=== PATIENT | male | born 1980 | race Caucasian/White ===

== ENCOUNTER 2019-09-26 20:51 | Observation (INO) | payer BC ==
[2019-09-26] MEDS ORDERED: Sodium Chloride 0.9% 1,000 ML IV ONE ×2 (21:08→23:39)
[2019-09-26] MEDS ORDERED: Ondansetron 4 MG/2 ML SDV IVPUSH ONE (21:10)
[2019-09-26] MEDS ORDERED: Morphine 4 MG/ML Syringe IVPUSH ONE (21:10)
--- NOTE | 2019-09-26 21:14 | EDM.PDOC ---
ED HPI GENERAL MEDICAL PROBLEM - General Chief Complaint: Abdominal Pain Stated Complaint: LOWER RIGHT ABDOMINAL PAIN Time Seen by Provider: 09/26/19 20:58 Source of Information: Reports: Patient History Limitations: Reports: No Limitations - History of Present Illness INITIAL COMMENTS - FREE TEXT/NARRATIVE: 39-year-old male presents the emergency room chief complaint of right axillary abdominal pain. Patient states the pain comes and goes not related to eating, urinating, or any trauma. Patient has a history of ulcerative colitis patient denies fever chills or any chest pain Onset: Gradual Duration: Day(s): Location: Reports: Abdomen, Lower Extremity, Right Quality: Reports: Ache Severity: Moderate Improves with: Reports: None Worsens with: Reports: None Associated Symptoms: Reports: No Other Symptoms abdomen Pain Score (Numeric/FACES): 7 - Related Data Allergies Allergy/AdvReac Type Severity Reaction Status Date / Time No Known Allergies Allergy Verified 09/26/19 23:33 ED ROS GENERAL - Review of Systems Review Of Systems: See Below Constitutional: Reports: No Symptoms HEENT: Reports: No Symptoms Respiratory: Reports: No Symptoms Cardiovascular: Reports: No Symptoms Endocrine: Reports: No Symptoms GI/Abdominal: Reports: No Symptoms, Abdominal Pain : Reports: No Symptoms Musculoskeletal: Reports: No Symptoms Skin: Reports: No Symptoms Neurological: Reports: No Symptoms Psychiatric: Reports: No Symptoms Hematologic/Lymphatic: Reports: No Symptoms Immunologic: Reports: No Symptoms ED EXAM, GI/ABD - Physical Exam Exam: See Below Exam Limited By: No Limitations General Appearance: Alert, WD/WN, No Apparent Distress Eyes: Bilateral: Normal Appearance, EOMI Ears: Normal External Exam, Normal Canal, Hearing Grossly Normal, Normal TMs Course - Vital Signs Text/Narrative:: 39-year-old gentleman presents to the emergency room with right sided abdominal pain. Patient has a history of primary sclerosing cirrhosis of the liver and ulcerative colitis. Patient is followed in the [facility] next time he is seen this in next January. Patient states for the past 3 days he has had pain no nausea no vomiting over his liver. Patient denies chills and fever. He has a normal CT scan. Patient's CBC is normal. Patient's LFT reflects transaminase. Patient still uncomfortable despite 2 4 morphine and Zofran. Patient does not feel pain is under control for being discharged home. I will call the admitting physician and attempt to get the patient admitted for pain control. Abdominal pain Assessment: Abdominal pain Cussed the case with the hospitalist Last Recorded V/S: Last Vital Signs Temp 97.7 F 09/26/19 23:08 Pulse 79 09/26/19 23:08 Resp 18 09/26/19 23:08 BP 147/99 H 09/26/19 23:08 Pulse Ox 97 09/26/19 23:08 - Orders/Labs/Meds Labs: Laboratory Tests 09/26/19 09/26/19 09/26/19 Range/Units 21:26 21:32 21:32 WBC 10.06 (4.0-11.0) K/uL RBC 4.65 (4.50-5.90) M/uL Hgb 13.5 (13.0-17.0) g/dL Hct 41.4 (38.0-50.0) % MCV 89.0 (80.0-98.0) fL MCH 29.0 (27.0-32.0) pg MCHC 32.6 (31.0-37.0) g/dL RDW Std Deviation 47.5 (28.0-62.0) fl RDW Coeff of Peter 15 (11.0-15.0) % Plt Count 271 (150-400) K/uL MPV 10.40 (7.40-12.00) fL Neut % (Auto) 68.3 (48.0-80.0) % Lymph % (Auto) 22.5 (16.0-40.0) % [place] % (Auto) 8.1 (0.0-15.0) % Eos % (Auto) 0.9 (0.0-7.0) % Baso % (Auto) 0.2 (0.0-1.5) % Neut # (Auto) 6.9 H (1.4-5.7) K/uL Lymph # (Auto) 2.3 (0.6-2.4) K/uL [place] # (Auto) 0.8 (0.0-0.8) K/uL Eos # (Auto) 0.1 (0.0-0.7) K/uL Baso # (Auto) 0.0 (0.0-0.1) K/uL Nucleated RBC % 0.0 /100WBC Nucleated RBCs # 0 K/uL Sodium 132 L (136-148) mmol/L Potassium 4.3 (3.5-5.1) mmol/L Chloride 94 L (98-107) mmol/L Carbon Dioxide 28.8 (21.0-32.0) mmol/L BUN 17 (7.0-18.0) mg/dL Creatinine 1.1 (0.8-1.3) mg/dL Est Cr Clr Drug Dosing TNP Estimated GFR (MDRD) > 60.0 ml/min Glucose 411 H (74-106) mg/dL Calcium 8.9 (8.5-10.1) mg/dL Total Bilirubin 0.8 (0.2-1.0) mg/dL AST 89 H (15-37) IU/L ALT 152 H (14-63) IU/L Alkaline Phosphatase 193 H (46-116) U/L Total Protein 9.4 H (6.4-8.2) g/dL Albumin 3.7 (3.4-5.0) g/dL Globulin 5.7 H (2.6-4.0) g/dL Albumin/Globulin Ratio 0.7 L (0.9-1.6) Urine Color YELLOW Urine Appearance CLEAR Urine pH 7.0 (5.0-8.0) Ur Specific [place] 1.015 (1.001-1.035) Urine Protein NEGATIVE (NEGATIVE) mg/dL Urine Glucose (UA) >=1000 (NEGATIVE) mg/dL Urine Ketones NEGATIVE (NEGATIVE) mg/dL Urine Occult Blood NEGATIVE (NEGATIVE) Urine Nitrite NEGATIVE (NEGATIVE) Urine Bilirubin NEGATIVE (NEGATIVE) Urine Urobilinogen 0.2 (<2.0) EU/dL Ur Leukocyte Esterase NEGATIVE (NEGATIVE) Meds: Medications Discontinued Medications Generic Name Dose Route Start Last Admin Trade Name Freq PRN Reason Stop Dose Admin Sodium Chloride 1,000 mls @ 1,000 mls/hr 09/26/19 21:08 09/26/19 21:35 Normal Saline IV 09/26/19 22:07 1,000 mls/hr .Bolus ONE Administration Iopamidol 100 ml 09/26/19 22:36 09/26/19 22:36 Isovue-370 (76%) IVPUSH 09/26/19 22:37 100 ml ONETIME ONE Administration Morphine Sulfate 4 mg 09/26/19 21:10 09/26/19 21:37 Morphine IVPUSH 09/26/19 21:11 4 mg ONETIME ONE Administration Morphine Sulfate 6 mg 09/26/19 23:28 Morphine IVPUSH 09/26/19 23:29 ONETIME ONE Ondansetron HCl 4 mg 09/26/19 21:10 09/26/19 21:36 Zofran IVPUSH 09/26/19 21:11 4 mg ONETIME ONE Administration Departure - Departure Time of Disposition: 23:39 Disposition: Refer to Observation Condition: Good Clinical Impression: Abdominal pain Qualifiers: Abdominal location: right upper quadrant Qualified Code(s): R10.11 - Right upper quadrant pain - Discharge Information Referrals: PCP,None [Primary Care Provider] - Forms: ED Department Discharge Sepsis Event Note - Focused Exam Vital Signs: Vital Signs Temp Pulse Resp BP Pulse Ox 09/26/19 23:08 97.7 F 79 18 147/99 H 97 09/26/19 21:04 97.4 F 90 18 103/41 L 97 Date Exam was Performed: 09/26/19 Time Exam was Performed: 23:38
[2019-09-26 21:56] LABS: BLOOD UREA NITROGEN,BUN 17 mg/dL (7.0-18.0); CARBON DIOXIDE,CO2 28.8 mmol/L (21.0-32.0); CHLORIDE,CL 94 mmol/L (98-107); GLUCOSE RANDOM 411 mg/dL (74-106); POTASSIUM,K 4.3 mmol/L (3.5-5.1); SODIUM,NA 132 mmol/L (136-148)
[2019-09-26] MEDS ORDERED: Iopamidol 755 Mg/ML 100 ML Bottle IVPUSH ONE (22:36)
--- NOTE | 2019-09-26 22:50 | CT ---
INDICATION: Right lower quadrant pain for [address] ABDOMEN AND PELVIS WITH CONTRAST TECHNIQUE: Multidetector CT imaging was performed through the abdomen and pelvis following intravenous contrast administration using 100 mL Isovue 370. Coronal and sagittal reconstructions were generated. COMPARISON: None. FINDINGS: Lower chest: Minimal bibasilar lung atelectasis. Liver: Within normal limits. Gallbladder and bile ducts: Status post cholecystectomy. No biliary dilation identified. Pancreas: Unremarkable. Spleen: Mild splenomegaly measuring 14.5 centimeters. Adrenals: No nodules or masses. Kidneys, ureters, and urinary bladder: Cyst at the lower pole of the right kidney. No solid renal masses or hydronephrosis. No bladder mass or definite wall thickening. Gastrointestinal tract: Normal caliber bowel without wall thickening or obstruction. Enlarged appendix measuring 15 millimeters in diameter with diffuse wall thickening and mild periappendiceal fat stranding, consistent with appendicitis. Vascular structures: Normal for age. Peritoneum: No free air, abscess, or significant free fluid. Lymph nodes: A few upper normal sized abdiel hepatis and portacaval lymph nodes. No pathologically enlarged nodes identified. Reproductive organs: No pelvic masses. Bones: Minor spinal degenerative changes. IMPRESSION: 1. Appendicitis. No evidence of perforation or abscess. 2. Nonacute additional findings as detailed above. KATHRINE LARIOS MD [facility] Dictated by García Larios MD @ 09/26/2019 10:49:41 PM Dictated by: García Larios MD @ 09/26/2019 22:50:08 (Electronically Signed)
[2019-09-26] MEDS ORDERED: Morphine 10 MG/ML Syringe IVPUSH ONE (23:28)
[2019-09-27] MEDS ORDERED: Piperacillin/Tazobactam 3.375 GM in Sodium Chloride 0.9% 50 ML IV ONE ×2 (00:03→11:00)
[2019-09-27] MEDS ORDERED: HYDROmorphone 1 MG/ML Syringe IVPUSH ONE (00:49)
--- NOTE | 2019-09-27 01:32 | PCM.HP.2 ---
H&P History of Present Illness - General Date of Service: 09/27/19 Admit Problem/Dx: Admission Diagnosis/Problem Admission Diagnosis/Problem Appendicitis Source of Information: Patient History Limitations: Reports: No Limitations - History of Present Illness Initial Comments - Free Text/Narative: Patient is a 39 year old male with ulcerative colitis, hypertension, diabetes mellitus, hyperlipidemia, and primary sclerosing cholangitis who presents with right sided abdominal pain. It started yesterday evening after supper. It has persisted and gotten worse over the day. His symptoms were associated with nausea, but no fevers, chills, vomiting, or change in bowel habits. He had a normal BM this afternoon. He ate a regular meal this evening. He states that since his diagnosis of UC in 2018 he has been well controlled on medications and has not had a flare. His last colonoscopy was in February of 2019. He had chronically elevated LFTs and after extensive workup was found to have primary sclerosing cholangitis. He follows up with GI in [place]. He is not on systemic steroid treatment. abdomen Pain Score (Numeric/FACES): 7 - Related Data Allergies/Adverse Reactions: Allergies Allergy/AdvReac Type Severity Reaction Status Date / Time No Known Allergies Allergy Verified 09/26/19 23:33 Home Medications: Home Meds Anti Cholesterol 09/27/19 [History] Anti Htn 09/27/19 [History] Esomeprazole [NexIUM] 40 mg PO DAILY 09/27/19 [History] Mesalamine [Asacol Hd] 800 mg PO TID 09/27/19 [History] Sertraline [Zoloft] 50 mg PO DAILY 09/27/19 [History] metFORMIN [Glucophage] 500 mg PO BID 09/27/19 [History] ursodioL [Ursodiol] 500 mg PO BID 09/27/19 [History] Past Medical History - Past Health History Medical/Surgical History: Denies Medical/Surgical History Gastrointestinal History: Reports: None Genitourinary History: Reports: Renal Calculus Endocrine/Metabolic History: Reports: Diabetes, Type II - Past Surgical History GI Surgical History: Reports: Cholecystectomy Other GI Surgeries/Procedures: Liver biopsy, colonoscopy Male Surgical History: Reports: Kidney Stone Extraction Endocrine Surgical History: Reports: None Social & Family History - Family History Family Medical History: Noncontributory - Tobacco Use Smoking Status *Q: Never Smoker Second Hand Smoke Exposure: No - Caffeine Use Caffeine Use: Reports: None - Recreational Drug Use Recreational Drug Use: No H&P Review of Systems - Review of Systems: Review Of Systems: Comprehensive ROS is negative, except as noted in HPI. Exam - Exam Exam: See Below - Vital Signs Vital Signs: Last Vital Signs Temp 36.8 C 09/27/19 01:18 Pulse 84 09/27/19 01:18 Resp 18 09/27/19 01:18 BP 149/97 H 09/27/19 01:18 Pulse Ox 96 09/27/19 01:18 Weight: 86.183 kg - Exam Quality Assessment: Supplemental Oxygen General: Alert, Oriented HEENT: Conjunctiva Clear, Mucosa Moist & Brilliant, Posterior Pharynx Clear Lungs: Clear to Auscultation, Normal Respiratory Effort Cardiovascular: Regular Rate, Regular Rhythm GI/Abdominal Exam: Soft, No Distention, No Mass, Tender (RLQ). No: Guarding, Rigid, Rebound Back Exam: Normal Inspection Extremities: Normal Inspection Skin: Warm, Dry, Intact Neuro Extensive - Mental Status: Alert, Oriented x3 - Patient Data Lab Results Last 24 hrs: Laboratory Results - last 24 hr 09/26/19 09/26/19 09/26/19 Range/Units 21:26 21:32 21:32 WBC 10.06 (4.0-11.0) K/uL RBC 4.65 (4.50-5.90) M/uL Hgb 13.5 (13.0-17.0) g/dL Hct 41.4 (38.0-50.0) % MCV 89.0 (80.0-98.0) fL MCH 29.0 (27.0-32.0) pg MCHC 32.6 (31.0-37.0) g/dL RDW Std Deviation 47.5 (28.0-62.0) fl RDW Coeff of Peter 15 (11.0-15.0) % Plt Count 271 (150-400) K/uL MPV 10.40 (7.40-12.00) fL Neut % (Auto) 68.3 (48.0-80.0) % Lymph % (Auto) 22.5 (16.0-40.0) % [place] % (Auto) 8.1 (0.0-15.0) % Eos % (Auto) 0.9 (0.0-7.0) % Baso % (Auto) 0.2 (0.0-1.5) % Neut # (Auto) 6.9 H (1.4-5.7) K/uL Lymph # (Auto) 2.3 (0.6-2.4) K/uL [place] # (Auto) 0.8 (0.0-0.8) K/uL Eos # (Auto) 0.1 (0.0-0.7) K/uL Baso # (Auto) 0.0 (0.0-0.1) K/uL Nucleated RBC % 0.0 /100WBC Nucleated RBCs # 0 K/uL Sodium 132 L (136-148) mmol/L Potassium 4.3 (3.5-5.1) mmol/L Chloride 94 L (98-107) mmol/L Carbon Dioxide 28.8 (21.0-32.0) mmol/L BUN 17 (7.0-18.0) mg/dL Creatinine 1.1 (0.8-1.3) mg/dL Est Cr Clr Drug Dosing TNP Estimated GFR (MDRD) > 60.0 ml/min Glucose 411 H (74-106) mg/dL Calcium 8.9 (8.5-10.1) mg/dL Total Bilirubin 0.8 (0.2-1.0) mg/dL AST 89 H (15-37) IU/L ALT 152 H (14-63) IU/L Alkaline Phosphatase 193 H (46-116) U/L Total Protein 9.4 H (6.4-8.2) g/dL Albumin 3.7 (3.4-5.0) g/dL Globulin 5.7 H (2.6-4.0) g/dL Albumin/Globulin Ratio 0.7 L (0.9-1.6) Urine Color YELLOW Urine Appearance CLEAR Urine pH 7.0 (5.0-8.0) Ur Specific [place] 1.015 (1.001-1.035) Urine Protein NEGATIVE (NEGATIVE) mg/dL Urine Glucose (UA) >=1000 (NEGATIVE) mg/dL Urine Ketones NEGATIVE (NEGATIVE) mg/dL Urine Occult Blood NEGATIVE (NEGATIVE) Urine Nitrite NEGATIVE (NEGATIVE) Urine Bilirubin NEGATIVE (NEGATIVE) Urine Urobilinogen 0.2 (<2.0) EU/dL Ur Leukocyte Esterase NEGATIVE (NEGATIVE) Result Diagrams: 09/26/19 21:32 09/26/19 21:32 Sepsis Event Note - Evaluation Sepsis Screening Result: No Definite Risk - Focused Exam Vital Signs: Vital Signs Temp Pulse Resp BP Pulse Ox 09/27/19 01:18 36.8 C 84 18 149/97 H 96 09/27/19 00:25 37.1 C 72 18 141/93 H 96 09/26/19 23:48 81 18 142/101 H 96 09/26/19 23:08 36.5 C 79 18 147/99 H 97 09/26/19 22:00 78 18 140/91 H 97 09/26/19 21:04 36.3 C 90 18 103/41 L 97 Date Exam was Performed: 09/27/19 Time Exam was Performed: 01:26 - Problem List (1) Appendicitis SNOMED Code(s): 36766842 ICD Code: K37 - UNSPECIFIED APPENDICITIS Status: Acute Current Visit: Yes (2) Abdominal pain SNOMED Code(s): 47972467 ICD Code: R10.9 - UNSPECIFIED ABDOMINAL PAIN Status: Acute Current Visit : Yes Qualifiers: Abdominal location: right upper quadrant Qualified Code(s): R10.11 - Right upper quadrant pain Problem List Initiated/Reviewed/Updated: Yes Orders Last 24hrs: Active Orders 24 hr Category Date Time Status Patient Status [ADT] Routine ADT 09/27/19 01:14 Active Pediatric Associate Discontinue [Cardiac Monitoring Care 09/27/19 01:14 Active Discontinue] [RC] Click to Edit Telemetry Monitoring [Cardiac Monitoring] [RC] Q8H Care 09/27/19 00:00 Active LACTATE WITH REFLEX [BG] Stat Lab 09/27/19 01:16 Ordered Assessment/Plan Comment:: The patients vital signs were normal on arrival other than being hypertensive. His WBC is normal at 10K with no left shift. His LFTs are elevated but appear to be around his normal level. CT scan shows a dilated appendix with no evidence of abscess, perforation or cecal inflammation. This was felt to be consistent with appendicitis. Given his history of UC, this could be a UC flare as well. We discussed this. Will admit him tonight since it is 2 am. Will resucitate with IVF, IV antibiotics and make him NPO. I will repeat labs at 6 am and reassess his symptoms. We will discuss surgery vs transfer vs non- operative management at that time.
[2019-09-27] MEDS ORDERED: diphenhydrAMINE 25 MG Cap PO PRN (01:40)
[2019-09-27] MEDS ORDERED: Sodium Chloride 0.9% 10 ML SDV IV PRN (01:40)
[2019-09-27] MEDS ORDERED: Sodium Chloride 0.9% 2.5 ML Syringe FLUSH PRN (01:40)
[2019-09-27] MEDS ORDERED: Sodium Chloride 0.9% 10 ML Syringe FLUSH PRN (01:40)
[2019-09-27] MEDS ORDERED: Ondansetron 4 MG/2 ML SDV IVPUSH PRN (01:40)
[2019-09-27] MEDS: HYDROmorphone 2 MG/ML Syringe IVPUSH PRN ×6 (02:18→09:33)
[2019-09-27] MEDS: Lactated Ringers 1,000 ML IV SCH ×3 (02:21→17:08)
[2019-09-27] MEDS: Piperacillin/Tazobactam 3.375 GM in Sodium Chloride 0.9% 50 ML IV SCH ×4 (04:59→23:50)
[2019-09-27 06:37] LABS: BLOOD UREA NITROGEN,BUN 15 mg/dL (7.0-18.0); CARBON DIOXIDE,CO2 28.3 mmol/L (21.0-32.0); CHLORIDE,CL 102 mmol/L (98-107); GLUCOSE RANDOM 217 mg/dL (74-106); POTASSIUM,K 4.3 mmol/L (3.5-5.1); SODIUM,NA 136 mmol/L (136-148)
[2019-09-27 07:35] LABS: HEMOGLOBIN A1C 7.8 % (4.5-6.2)
[2019-09-27] MEDS: Insulin Aspart 100 Units/ML 3 ML Pen SUBCUT SCH ×3 (07:42→17:44)
[2019-09-27] MEDS ORDERED: Pantoprazole 40 MG in Sodium Chloride 0.9% 10 ML IV SCH (09:00)
--- NOTE | 2019-09-27 09:46 | PCM.PN ---
- General Info Date of Service: 09/27/19 Subjective Update: Patient admitted for IVF, IV antibiotics and made NPO. Patient continued to have RLQ pain over the past 6 hours. He was given IV dilaudid several times. This dulls the pain but doesnt take it away. Vitals stable. Repeat labs show a slightly lower WBC. His hgb is slightly lower as well (likely dilutional). ESR is mildly elevated at 45. CRP is 1.0. INR, PT, and PTT within normal limits. LFTs slightly improved. Bilirubin 1.2. Patient c/o malaise. - Review of Systems General: Reports: Malaise HEENT: Reports: No Symptoms Pulmonary: Reports: No Symptoms Cardiovascular: Reports: No Symptoms Gastrointestinal: Reports: Abdominal Pain, Decreased Appetite, Nausea Genitourinary: Reports: No Symptoms Musculoskeletal: Reports: No Symptoms Skin: Reports: No Symptoms - Patient Data Vitals - Most Recent: Last Vital Signs Temp 35.9 C L 09/27/19 07:50 Pulse 65 09/27/19 07:50 Resp 19 09/27/19 07:50 BP 132/80 09/27/19 07:50 Pulse Ox 95 09/27/19 07:50 Weight - Most Recent: 90.764 kg I&O - Last 24 Hours: Intake & Output 09/26/19 09/27/19 09/27/19 22:59 06:59 14:59 Intake Total 0 Output Total 600 Balance -600 Lab Results Last 24 Hours: Laboratory Results - last 24 hr 09/26/19 09/26/19 09/26/19 Range/Units 21:26 21:32 21:32 WBC 10.06 (4.0-11.0) K/uL RBC 4.65 (4.50-5.90) M/uL Hgb 13.5 (13.0-17.0) g/dL Hct 41.4 (38.0-50.0) % MCV 89.0 (80.0-98.0) fL MCH 29.0 (27.0-32.0) pg MCHC 32.6 (31.0-37.0) g/dL RDW Std Deviation 47.5 (28.0-62.0) fl RDW Coeff of Peter 15 (11.0-15.0) % Plt Count 271 (150-400) K/uL MPV 10.40 (7.40-12.00) fL Neut % (Auto) 68.3 (48.0-80.0) % Lymph % (Auto) 22.5 (16.0-40.0) % [place] % (Auto) 8.1 (0.0-15.0) % Eos % (Auto) 0.9 (0.0-7.0) % Baso % (Auto) 0.2 (0.0-1.5) % Neut # (Auto) 6.9 H (1.4-5.7) K/uL Lymph # (Auto) 2.3 (0.6-2.4) K/uL [place] # (Auto) 0.8 (0.0-0.8) K/uL Eos # (Auto) 0.1 (0.0-0.7) K/uL Baso # (Auto) 0.0 (0.0-0.1) K/uL Nucleated RBC % 0.0 /100WBC Nucleated RBCs # 0 K/uL ESR (0-14) mm/hr INR APTT (18.6-31.3) SEC Lactate (0.20-2.00) mmol/L Sodium 132 L (136-148) mmol/L Potassium 4.3 (3.5-5.1) mmol/L Chloride 94 L (98-107) mmol/L Carbon Dioxide 28.8 (21.0-32.0) mmol/L BUN 17 (7.0-18.0) mg/dL Creatinine 1.1 (0.8-1.3) mg/dL Est Cr Clr Drug Dosing TNP Estimated GFR (MDRD) > 60.0 ml/min Glucose 411 H (74-106) mg/dL POC Glucose (60-110) mg/dL Hemoglobin A1c (4.5-6.2) % Calcium 8.9 (8.5-10.1) mg/dL Total Bilirubin 0.8 (0.2-1.0) mg/dL AST 89 H (15-37) IU/L ALT 152 H (14-63) IU/L Alkaline Phosphatase 193 H (46-116) U/L C-Reactive Protein (0.00-0.90) mg/dL Total Protein 9.4 H (6.4-8.2) g/dL Albumin 3.7 (3.4-5.0) g/dL Globulin 5.7 H (2.6-4.0) g/dL Albumin/Globulin Ratio 0.7 L (0.9-1.6) Urine Color YELLOW Urine Appearance CLEAR Urine pH 7.0 (5.0-8.0) Ur Specific [place] 1.015 (1.001-1.035) Urine Protein NEGATIVE (NEGATIVE) mg/dL Urine Glucose (UA) >=1000 (NEGATIVE) mg/dL Urine Ketones NEGATIVE (NEGATIVE) mg/dL Urine Occult Blood NEGATIVE (NEGATIVE) Urine Nitrite NEGATIVE (NEGATIVE) Urine Bilirubin NEGATIVE (NEGATIVE) Urine Urobilinogen 0.2 (<2.0) EU/dL Ur Leukocyte Esterase NEGATIVE (NEGATIVE) SARS-CoV-2 RNA (RT-PCR) (NEGATIVE) 09/26/19 09/27/19 09/27/19 Range/Units 21:32 06:00 06:00 WBC 8.03 (4.0-11.0) K/uL RBC 3.91 L (4.50-5.90) M/uL Hgb 11.0 L (13.0-17.0) g/dL Hct 34.9 L (38.0-50.0) % MCV 89.3 (80.0-98.0) fL MCH 28.1 (27.0-32.0) pg MCHC 31.5 (31.0-37.0) g/dL RDW Std Deviation 48.5 (28.0-62.0) fl RDW Coeff of Peter 15 (11.0-15.0) % Plt Count 215 (150-400) K/uL MPV 9.90 (7.40-12.00) fL Neut % (Auto) 67.2 (48.0-80.0) % Lymph % (Auto) 22.5 (16.0-40.0) % [place] % (Auto) 9.2 (0.0-15.0) % Eos % (Auto) 0.9 (0.0-7.0) % Baso % (Auto) 0.2 (0.0-1.5) % Neut # (Auto) 5.4 (1.4-5.7) K/uL Lymph # (Auto) 1.8 (0.6-2.4) K/uL [place] # (Auto) 0.7 (0.0-0.8) K/uL Eos # (Auto) 0.1 (0.0-0.7) K/uL Baso # (Auto) 0.0 (0.0-0.1) K/uL Nucleated RBC % 0.0 /100WBC Nucleated RBCs # 0 K/uL ESR 45 H (0-14) mm/hr INR APTT (18.6-31.3) SEC Lactate 1.0 (0.20-2.00) mmol/L Sodium (136-148) mmol/L Potassium (3.5-5.1) mmol/L Chloride (98-107) mmol/L Carbon Dioxide (21.0-32.0) mmol/L BUN (7.0-18.0) mg/dL Creatinine (0.8-1.3) mg/dL Est Cr Clr Drug Dosing Estimated GFR (MDRD) ml/min Glucose (74-106) mg/dL POC Glucose (60-110) mg/dL Hemoglobin A1c (4.5-6.2) % Calcium (8.5-10.1) mg/dL Total Bilirubin (0.2-1.0) mg/dL AST (15-37) IU/L ALT (14-63) IU/L Alkaline Phosphatase (46-116) U/L C-Reactive Protein (0.00-0.90) mg/dL Total Protein (6.4-8.2) g/dL Albumin (3.4-5.0) g/dL Globulin (2.6-4.0) g/dL Albumin/Globulin Ratio (0.9-1.6) Urine Color Urine Appearance Urine pH (5.0-8.0) Ur Specific [place] (1.001-1.035) Urine Protein (NEGATIVE) mg/dL Urine Glucose (UA) (NEGATIVE) mg/dL Urine Ketones (NEGATIVE) mg/dL Urine Occult Blood (NEGATIVE) Urine Nitrite (NEGATIVE) Urine Bilirubin (NEGATIVE) Urine Urobilinogen (<2.0) EU/dL Ur Leukocyte Esterase (NEGATIVE) SARS-CoV-2 RNA (RT-PCR) (NEGATIVE) 09/27/19 09/27/19 09/27/19 Range/Units 06:00 06:00 06:20 WBC (4.0-11.0) K/uL RBC (4.50-5.90) M/uL Hgb (13.0-17.0) g/dL Hct (38.0-50.0) % MCV (80.0-98.0) fL MCH (27.0-32.0) pg MCHC (31.0-37.0) g/dL RDW Std Deviation (28.0-62.0) fl RDW Coeff of Peter (11.0-15.0) % Plt Count (150-400) K/uL MPV (7.40-12.00) fL Neut % (Auto) (48.0-80.0) % Lymph % (Auto) (16.0-40.0) % [place] % (Auto) (0.0-15.0) % Eos % (Auto) (0.0-7.0) % Baso % (Auto) (0.0-1.5) % Neut # (Auto) (1.4-5.7) K/uL Lymph # (Auto) (0.6-2.4) K/uL [place] # (Auto) (0.0-0.8) K/uL Eos # (Auto) (0.0-0.7) K/uL Baso # (Auto) (0.0-0.1) K/uL Nucleated RBC % /100WBC Nucleated RBCs # K/uL ESR (0-14) mm/hr INR 0.95 APTT 24.0 (18.6-31.3) SEC Lactate (0.20-2.00) mmol/L Sodium 136 (136-148) mmol/L Potassium 4.3 (3.5-5.1) mmol/L Chloride 102 (98-107) mmol/L Carbon Dioxide 28.3 (21.0-32.0) mmol/L BUN 15 (7.0-18.0) mg/dL Creatinine 1.0 (0.8-1.3) mg/dL Est Cr Clr Drug Dosing 90.89 Estimated GFR (MDRD) > 60.0 ml/min Glucose 217 H (74-106) mg/dL POC Glucose (60-110) mg/dL Hemoglobin A1c 7.8 H (4.5-6.2) % Calcium 8.0 L (8.5-10.1) mg/dL Total Bilirubin 1.2 H (0.2-1.0) mg/dL AST 80 H (15-37) IU/L ALT 137 H (14-63) IU/L Alkaline Phosphatase 162 H (46-116) U/L C-Reactive Protein 1.10 H (0.00-0.90) mg/dL Total Protein 7.6 (6.4-8.2) g/dL Albumin 3.1 L (3.4-5.0) g/dL Globulin 4.5 H (2.6-4.0) g/dL Albumin/Globulin Ratio 0.7 L (0.9-1.6) Urine Color Urine Appearance Urine pH (5.0-8.0) Ur Specific [place] (1.001-1.035) Urine Protein (NEGATIVE) mg/dL Urine Glucose (UA) (NEGATIVE) mg/dL Urine Ketones (NEGATIVE) mg/dL Urine Occult Blood (NEGATIVE) Urine Nitrite (NEGATIVE) Urine Bilirubin (NEGATIVE) Urine Urobilinogen (<2.0) EU/dL Ur Leukocyte Esterase (NEGATIVE) SARS-CoV-2 RNA (RT-PCR) (NEGATIVE) 09/27/19 09/27/19 Range/Units 07:41 08:30 WBC (4.0-11.0) K/uL RBC (4.50-5.90) M/uL Hgb (13.0-17.0) g/dL Hct (38.0-50.0) % MCV (80.0-98.0) fL MCH (27.0-32.0) pg MCHC (31.0-37.0) g/dL RDW Std Deviation (28.0-62.0) fl RDW Coeff of Peter (11.0-15.0) % Plt Count (150-400) K/uL MPV (7.40-12.00) fL Neut % (Auto) (48.0-80.0) % Lymph % (Auto) (16.0-40.0) % [place] % (Auto) (0.0-15.0) % Eos % (Auto) (0.0-7.0) % Baso % (Auto) (0.0-1.5) % Neut # (Auto) (1.4-5.7) K/uL Lymph # (Auto) (0.6-2.4) K/uL [place] # (Auto) (0.0-0.8) K/uL Eos # (Auto) (0.0-0.7) K/uL Baso # (Auto) (0.0-0.1) K/uL Nucleated RBC % /100WBC Nucleated RBCs # K/uL ESR (0-14) mm/hr INR APTT (18.6-31.3) SEC Lactate (0.20-2.00) mmol/L Sodium (136-148) mmol/L Potassium (3.5-5.1) mmol/L Chloride (98-107) mmol/L Carbon Dioxide (21.0-32.0) mmol/L BUN (7.0-18.0) mg/dL Creatinine (0.8-1.3) mg/dL Est Cr Clr Drug Dosing Estimated GFR (MDRD) ml/min Glucose (74-106) mg/dL POC Glucose 199 H (60-110) mg/dL Hemoglobin A1c (4.5-6.2) % Calcium (8.5-10.1) mg/dL Total Bilirubin (0.2-1.0) mg/dL AST (15-37) IU/L ALT (14-63) IU/L Alkaline Phosphatase (46-116) U/L C-Reactive Protein (0.00-0.90) mg/dL Total Protein (6.4-8.2) g/dL Albumin (3.4-5.0) g/dL Globulin (2.6-4.0) g/dL Albumin/Globulin Ratio (0.9-1.6) Urine Color Urine Appearance Urine pH (5.0-8.0) Ur Specific [place] (1.001-1.035) Urine Protein (NEGATIVE) mg/dL Urine Glucose (UA) (NEGATIVE) mg/dL Urine Ketones (NEGATIVE) mg/dL Urine Occult Blood (NEGATIVE) Urine Nitrite (NEGATIVE) Urine Bilirubin (NEGATIVE) Urine Urobilinogen (<2.0) EU/dL Ur Leukocyte Esterase (NEGATIVE) SARS-CoV-2 RNA (RT-PCR) NEGATIVE (NEGATIVE) Med Orders - Current: Current Medications Diphenhydramine HCl (Benadryl) 25 mg PO Q4H PRN PRN Reason: Itching Hydromorphone HCl (Dilaudid) 0.5 mg IVPUSH Q1H PRN PRN Reason: Pain (severe 7-10) Last Admin: 09/27/19 09:33 Dose: 0.5 mg Lactated Ringer's (Ringers, Lactated) 1,000 mls @ 125 mls/hr IV ASDIRECTED [facility] Last Admin: 09/27/19 02:21 Dose: 125 mls/hr Piperacillin Sod/Tazobactam (Sod 3.375 gm/ Sodium Chloride) 50 mls @ 100 mls/ hr IV Q6H [facility] Last Admin: 09/27/19 04:59 Dose: 100 mls/hr Pantoprazole Sodium 40 mg/ (Sodium Chloride) 10 mls @ 300 mls/hr IV DAILY [facility] Last Admin: 09/27/19 09:33 Dose: 300 mls/hr Insulin Aspart (Novolog) 0 unit SUBCUT TIDAC [facility]; Protocol Last Admin: 09/27/19 07:42 Dose: 1 unit Ondansetron HCl (Zofran) 4 mg IVPUSH Q6H PRN PRN Reason: Nausea/Vomiting Sodium Chloride (Saline Flush) 10 ml FLUSH ASDIRECTED PRN PRN Reason: Keep Vein Open Sodium Chloride (Saline Flush) 2.5 ml FLUSH ASDIRECTED PRN PRN Reason: Keep Vein Open Sodium Chloride (Normal Saline) 10 ml IV ASDIRECTED PRN PRN Reason: IV Use Discontinued Medications Hydromorphone HCl (Dilaudid) 0.5 mg IVPUSH ONETIME ONE Stop: 09/27/19 00:50 Last Admin: 09/27/19 00:58 Dose: 0.5 mg Sodium Chloride (Normal Saline) 1,000 mls @ 1,000 mls/hr IV .Bolus ONE Stop: 09/26/19 22:07 Last Admin: 09/26/19 21:35 Dose: 1,000 mls/hr Sodium Chloride (Normal Saline) 1,000 mls @ 999 mls/hr IV .Bolus ONE Stop: 09/27/19 00:39 Last Admin: 09/26/19 23:41 Dose: 999 mls/hr Piperacillin Sod/Tazobactam (Sod 3.375 gm/ Sodium Chloride) 50 mls @ 100 mls/ hr IV ONETIME ONE Stop: 09/27/19 00:32 Last Admin: 09/27/19 00:22 Dose: 100 mls/hr Iopamidol (Isovue-370 (76%)) 100 ml IVPUSH ONETIME ONE Stop: 09/26/19 22:37 Last Admin: 09/26/19 22:36 Dose: 100 ml Morphine Sulfate (Morphine) 4 mg IVPUSH ONETIME ONE Stop: 09/26/19 21:11 Last Admin: 09/26/19 21:37 Dose: 4 mg Morphine Sulfate (Morphine) 6 mg IVPUSH ONETIME ONE Stop: 09/26/19 23:29 Last Admin: 09/26/19 23:42 Dose: 6 mg Ondansetron HCl (Zofran) 4 mg IVPUSH ONETIME ONE Stop: 09/26/19 21:11 Last Admin: 09/26/19 21:36 Dose: 4 mg - Exam General: Alert, Oriented, Mild Distress Lungs: Normal Respiratory Effort Cardiovascular: Regular Rate GI/Abdominal Exam: Tender (RLQ) Sepsis Event Note - Evaluation Sepsis Screening Result: No Definite Risk - Focused Exam Vital Signs: Vital Signs Temp Pulse Resp BP Pulse Ox 09/27/19 07:50 35.9 C L 65 19 132/80 95 09/27/19 01:50 36.6 C 89 17 134/98 H 95 09/27/19 01:18 36.8 C 84 18 149/97 H 96 09/27/19 00:25 37.1 C 72 18 141/93 H 96 09/26/19 23:48 81 18 142/101 H 96 09/26/19 23:08 36.5 C 79 18 147/99 H 97 09/26/19 22:00 78 18 140/91 H 97 Date Exam was Performed: 09/27/19 Time Exam was Performed: 09:40 - Problem List & Annotations (1) Appendicitis SNOMED Code(s): 55092151 Code(s): K37 - UNSPECIFIED APPENDICITIS Status: Acute Current Visit: Yes (2) Abdominal pain SNOMED Code(s): 71206693 Code(s): R10.9 - UNSPECIFIED ABDOMINAL PAIN Status: Acute Current Visit: Yes Qualifiers: Abdominal location: right upper quadrant Qualified Code(s): R10.11 - Right upper quadrant pain - Problem List Review Problem List Initiated/Reviewed/Updated: Yes - My Orders Last 24 Hours: My Active Orders 09/27/19 01:14 [employer] Discontinue [Cardiac Monitoring Discontinue] [RC] Click to Edit 09/27/19 01:40 Patient Status [ADT] Routine Oxygen Therapy [RC] PRN RT Incentive Spirometry [RC] Q1HWA Up ad Jaja [RC] ASDIRECTED Vital Signs [RC] PER UNIT ROUTINE HYDROmorphone [Dilaudid] 0.5 mg IVPUSH Q1H PRN Ondansetron [Zofran] 4 mg IVPUSH Q6H PRN Sodium Chloride 0.9% [Normal Saline] 10 ml IV ASDIRECTED PRN Sodium Chloride 0.9% [Saline Flush] 10 ml FLUSH ASDIRECTED PRN Sodium Chloride 0.9% [Saline Flush] 2.5 ml FLUSH ASDIRECTED PRN diphenhydrAMINE [Benadryl] 25 mg PO Q4H PRN Peripheral IV Insertion Adult [OM.PC] Urgent Resuscitation Status Routine 09/27/19 01:41 Intake and Output [RC] Q4HR Notify Provider Vital Signs [RC] PRN 09/27/19 01:45 Lactated Ringers [Ringers, Lactated] 1,000 ml IV ASDIRECTED 09/27/19 06:00 Piperacillin/Tazobactam [Piperacil-Tazobact] 3.375 gm Sodium Chloride 0.9% [ Normal Saline] 50 ml IV Q6H 09/27/19 07:30 Insulin Aspart [NovoLOG] See Protocol SUBCUT TIDAC 09/27/19 09:00 Pantoprazole [ProTONIX IV] 40 mg Sodium Chloride 0.9% [Normal Saline] 10 ml IV DAILY 09/27/19 Breakfast NPO Now [Nothing per Oral Now Diet] [DIET] - Plan Plan:: I reviewed the patient's case and CT scan with my senior strategy analyst. The base of his appendix and cecum appear normal. I called [facility] and discussed his case with the director clinical information services GI physician. He felt that this sounded like appendicitis and was unlikely to be a flare of UC. I discussed these findings with the patient and we agreed that the next best step was to perform an appendectomy. I explained that I would attempt this laparoscopically but should I be unable to perform it safely we would convert to open. I explained the risks including bleeding, infection, wound healing issues given his uncontrolled diabetes (hgb A1c of 7.8), the possibility of damage to surrounding structures as well as the need for a more extensive surgery. He verbalized understanding and wishes to proceed.
[2019-09-27] MEDS ORDERED: Rocuronium 100 MG/10 ML Syringe ONE (09:54)
[2019-09-27] MEDS ORDERED: fentaNYL 250 MCG/5 ML SDV ONE (09:54)
[2019-09-27] MEDS ORDERED: Bupivacaine 0.5% 30 ML SDV ONE (09:54)
[2019-09-27] MEDS ORDERED: Propofol 200 MG/20 ML SDV ONE (09:54)
[2019-09-27] MEDS ORDERED: Succinylcholine/Sod PF 100 MG/5 ML SYRINGE IV ONE (09:54)
[2019-09-27] MEDS ORDERED: Midazolam 1 MG/ML 2 ML SDV ONE (09:54)
[2019-09-27] MEDS ORDERED: Lidocaine 2% 5 ML SDV ONE (09:54)
--- NOTE | 2019-09-27 09:55 | PCM.PREANE ---
Preanesthetic Assessment - Anesthesia/Transfusion/Family Hx Anesthesia History: Prior Anesthesia Without Reaction Family History of Anesthesia Reaction: No Transfusion History: No Prior Transfusion(s) Intubation History: Unknown - Review of Systems General: No Symptoms Pulmonary: No Symptoms Cardiovascular: No Symptoms Gastrointestinal: Abdominal Pain Neurological: No Symptoms Other: Reports: None - Physical Assessment Vital Signs: Last Vital Signs Temp 35.9 C L 09/27/19 07:50 Pulse 65 09/27/19 07:50 Resp 19 09/27/19 07:50 BP 132/80 09/27/19 07:50 Pulse Ox 95 09/27/19 07:50 Height: 5 ft 7 in Weight: 90.764 kg ASA Class: 2E Mental Status: Alert & Oriented x3 Airway Class: Mallampati = 1 Dentition: Reports: Normal Dentition, [place](s) (right and left, upper and lower (back side)) Thyro-Mental Finger Breadths: 3 Mouth Opening Finger Breadths: 3 ROM/Head Extension: Full Lungs: Clear to Auscultation, Normal Respiratory Effort Cardiovascular: Regular Rate, Regular Rhythm - Lab Values: Laboratory Last Values WBC 8.03 K/uL (4.0-11.0) 09/27/19 06:00 RBC 3.91 M/uL (4.50-5.90) L 09/27/19 06:00 Hgb 11.0 g/dL (13.0-17.0) L 09/27/19 06:00 Hct 34.9 % (38.0-50.0) L 09/27/19 06:00 MCV 89.3 fL (80.0-98.0) 09/27/19 06:00 MCH 28.1 pg (27.0-32.0) 09/27/19 06:00 MCHC 31.5 g/dL (31.0-37.0) 09/27/19 06:00 RDW Std Deviation 48.5 fl (28.0-62.0) 09/27/19 06:00 RDW Coeff of Peter 15 % (11.0-15.0) 09/27/19 06:00 Plt Count 215 K/uL (150-400) 09/27/19 06:00 MPV 9.90 fL (7.40-12.00) 09/27/19 06:00 Neut % (Auto) 67.2 % (48.0-80.0) 09/27/19 06:00 Lymph % (Auto) 22.5 % (16.0-40.0) 09/27/19 06:00 [place] % (Auto) 9.2 % (0.0-15.0) 09/27/19 06:00 Eos % (Auto) 0.9 % (0.0-7.0) 09/27/19 06:00 Baso % (Auto) 0.2 % (0.0-1.5) 09/27/19 06:00 Neut # (Auto) 5.4 K/uL (1.4-5.7) 09/27/19 06:00 Lymph # (Auto) 1.8 K/uL (0.6-2.4) 09/27/19 06:00 [place] # (Auto) 0.7 K/uL (0.0-0.8) 09/27/19 06:00 Eos # (Auto) 0.1 K/uL (0.0-0.7) 09/27/19 06:00 Baso # (Auto) 0.0 K/uL (0.0-0.1) 09/27/19 06:00 Nucleated RBC % 0.0 /100WBC 09/27/19 06:00 Nucleated RBCs # 0 K/uL 09/27/19 06:00 ESR 45 mm/hr (0-14) H 09/27/19 06:00 INR 0.95 09/27/19 06:00 APTT 24.0 SEC (18.6-31.3) 09/27/19 06:00 Lactate 1.0 mmol/L (0.20-2.00) 09/26/19 21:32 Sodium 136 mmol/L (136-148) 09/27/19 06:00 Potassium 4.3 mmol/L (3.5-5.1) 09/27/19 06:00 Chloride 102 mmol/L (98-107) 09/27/19 06:00 Carbon Dioxide 28.3 mmol/L (21.0-32.0) 09/27/19 06:00 BUN 15 mg/dL (7.0-18.0) 09/27/19 06:00 Creatinine 1.0 mg/dL (0.8-1.3) 09/27/19 06:00 Est Cr Clr Drug Dosing 90.89 mL/min 09/27/19 06:00 Estimated GFR (MDRD) > 60.0 ml/min 09/27/19 06:00 Glucose 217 mg/dL (74-106) H 09/27/19 06:00 POC Glucose 199 mg/dL (60-110) H 09/27/19 07:41 Hemoglobin A1c 7.8 % (4.5-6.2) H 09/27/19 06:20 Calcium 8.0 mg/dL (8.5-10.1) L 09/27/19 06:00 Total Bilirubin 1.2 mg/dL (0.2-1.0) H 09/27/19 06:00 AST 80 IU/L (15-37) H 09/27/19 06:00 ALT 137 IU/L (14-63) H 09/27/19 06:00 Alkaline Phosphatase 162 U/L (46-116) H 09/27/19 06:00 C-Reactive Protein 1.10 mg/dL (0.00-0.90) H 09/27/19 06:00 Total Protein 7.6 g/dL (6.4-8.2) 09/27/19 06:00 Albumin 3.1 g/dL (3.4-5.0) L 09/27/19 06:00 Globulin 4.5 g/dL (2.6-4.0) H 09/27/19 06:00 Albumin/Globulin Ratio 0.7 (0.9-1.6) L 09/27/19 06:00 Urine Color YELLOW 09/26/19 21: Urine Appearance CLEAR 09/26/19 21: Urine pH 7.0 (5.0-8.0) 09/26/19 21: Ur Specific [place] 1.015 (1.001-1.035) 09/26/19 21: Urine Protein NEGATIVE mg/dL (NEGATIVE) 09/26/19: Urine Glucose (UA) >=1000 mg/dL (NEGATIVE) 09/26/19 21: Urine Ketones NEGATIVE mg/dL (NEGATIVE) 09/26/19 21: Urine Occult Blood NEGATIVE (NEGATIVE) 09/26/19 21: Urine Nitrite NEGATIVE (NEGATIVE) 09/26/19 21:26 Urine Bilirubin NEGATIVE (NEGATIVE) 09/26/19 21:26 Urine Urobilinogen 0.2 EU/dL (<2.0) 09/26/19 21:26 Ur Leukocyte Esterase NEGATIVE (NEGATIVE) 09/26/19 21:26 SARS-CoV-2 RNA (RT-PCR) NEGATIVE (NEGATIVE) 09/27/19 08:30 - Allergies Allergies/Adverse Reactions: Allergies Allergy/AdvReac Type Severity Reaction Status Date / Time No Known Allergies Allergy Verified 09/26/19 23:33 - Blood Blood Available: No - Anesthesia Plan Pre-Op Medication Ordered: None - Acknowledgements Anesthesia Type Planned: General Anesthesia Pt an Appropriate Candidate for the Planned Anesthesia: Yes Alternatives and Risks of Anesthesia Discussed w Pt/Guardian: Yes Pt/Guardian Understands and Agrees with Anesthesia Plan: Yes PreAnesthesia Questionnaire - Past Health History Medical/Surgical History: Denies Medical/Surgical History Cardiovascular History: Reports: Hypertension Gastrointestinal History: Reports: Inflammatory Bowel Disease (Ulceretive colitis, acute appendicitis at present time) Genitourinary History: Reports: Renal Calculus Endocrine/Metabolic History: Reports: Diabetes, Type II, Obesity/BMI 30+ (BMI 31.3) - Past Surgical History HEENT Surgical History: Reports: Oral Surgery GI Surgical History: Reports: Cholecystectomy Other GI Surgeries/Procedures: Liver biopsy, colonoscopy Male Surgical History: Reports: Kidney Stone Extraction (x2) Endocrine Surgical History: Reports: None - SUBSTANCE USE Smoking Status *Q: Never Smoker Tobacco Use Within Last Twelve Months: No Second Hand Smoke Exposure: No Recreational Drug Use History: No - HOME MEDS Home Medications: Home Meds Anti Cholesterol 09/27/19 [History] Anti Htn 09/27/19 [History] Esomeprazole [NexIUM] 40 mg PO DAILY 09/27/19 [History] Mesalamine [Asacol Hd] 800 mg PO TID 09/27/19 [History] Sertraline [Zoloft] 50 mg PO DAILY 09/27/19 [History] metFORMIN [Glucophage] 500 mg PO BID 09/27/19 [History] ursodioL [Ursodiol] 500 mg PO BID 09/27/19 [History] - CURRENT (IN HOUSE) MEDS Current Meds: Current Medications Diphenhydramine HCl (Benadryl) 25 mg PO Q4H PRN PRN Reason: Itching Hydromorphone HCl (Dilaudid) 0.5 mg IVPUSH Q1H PRN PRN Reason: Pain (severe 7-10) Last Admin: 09/27/19 09:33 Dose: 0.5 mg Lactated Ringer's (Ringers, Lactated) 1,000 mls @ 125 mls/hr IV ASDIRECTED [facility] Last Admin: 09/27/19 02:21 Dose: 125 mls/hr Piperacillin Sod/Tazobactam (Sod 3.375 gm/ Sodium Chloride) 50 mls @ 100 mls/ hr IV Q6H [facility] Last Admin: 09/27/19 04:59 Dose: 100 mls/hr Pantoprazole Sodium 40 mg/ (Sodium Chloride) 10 mls @ 300 mls/hr IV DAILY [facility] Last Admin: 09/27/19 09:33 Dose: 300 mls/hr Insulin Aspart (Novolog) 0 unit SUBCUT TIDAC [facility]; Protocol Last Admin: 09/27/19 07:42 Dose: 1 unit Ondansetron HCl (Zofran) 4 mg IVPUSH Q6H PRN PRN Reason: Nausea/Vomiting Sodium Chloride (Saline Flush) 10 ml FLUSH ASDIRECTED PRN PRN Reason: Keep Vein Open Sodium Chloride (Saline Flush) 2.5 ml FLUSH ASDIRECTED PRN PRN Reason: Keep Vein Open Sodium Chloride (Normal Saline) 10 ml IV ASDIRECTED PRN PRN Reason: IV Use Discontinued Medications Hydromorphone HCl (Dilaudid) 0.5 mg IVPUSH ONETIME ONE Stop: 09/27/19 00:50 Last Admin: 09/27/19 00:58 Dose: 0.5 mg Sodium Chloride (Normal Saline) 1,000 mls @ 1,000 mls/hr IV .Bolus ONE Stop: 09/26/19 22:07 Last Admin: 09/26/19 21:35 Dose: 1,000 mls/hr Sodium Chloride (Normal Saline) 1,000 mls @ 999 mls/hr IV .Bolus ONE Stop: 09/27/19 00:39 Last Admin: 09/26/19 23:41 Dose: 999 mls/hr Piperacillin Sod/Tazobactam (Sod 3.375 gm/ Sodium Chloride) 50 mls @ 100 mls/ hr IV ONETIME ONE Stop: 09/27/19 00:32 Last Admin: 09/27/19 00:22 Dose: 100 mls/hr Iopamidol (Isovue-370 (76%)) 100 ml IVPUSH ONETIME ONE Stop: 09/26/19 22:37 Last Admin: 09/26/19 22:36 Dose: 100 ml Morphine Sulfate (Morphine) 4 mg IVPUSH ONETIME ONE Stop: 09/26/19 21:11 Last Admin: 09/26/19 21:37 Dose: 4 mg Morphine Sulfate (Morphine) 6 mg IVPUSH ONETIME ONE Stop: 09/26/19 23:29 Last Admin: 09/26/19 23:42 Dose: 6 mg Ondansetron HCl (Zofran) 4 mg IVPUSH ONETIME ONE Stop: 09/26/19 21:11 Last Admin: 09/26/19 21:36 Dose: 4 mg
[2019-09-27] MEDS ORDERED: EPINEPHrine 1:10,000 1 MG/10 ML Syringe IVPUSH PRN (11:10)
[2019-09-27] MEDS ORDERED: Naloxone 0.4 MG/ML Syringe IVPUSH PRN (11:10)
[2019-09-27] MEDS ORDERED: fentaNYL 100 MCG/2 ML SDV IVPUSH PRN (11:10)
[2019-09-27] MEDS ORDERED: Albuterol 0.083% 2.5 MG/3 ML Neb Soln NEB PRN (11:10)
[2019-09-27] MEDS ORDERED: Atropine 0.1 MG/ML 10 ML Syringe IVPUSH PRN ×2 (11:10)
[2019-09-27] MEDS ORDERED: 50% Dextrose in Water 50 ML Syringe IVPUSH PRN (11:10)
[2019-09-27] MEDS ORDERED: Glycopyrrolate 0.2 MG/ML SDV ONE (11:32)
[2019-09-27] MEDS ORDERED: Ondansetron 4 MG/2 ML SDV ONE (11:33)
--- NOTE | 2019-09-27 12:11 | PCM.OPNOTE ---
- General Post-Op/Procedure Note Date of Surgery/Procedure: 09/27/19 Operative Procedure(s): Laparoscopic appendectomy Findings: Grossly inflammed and enlarged distal half of appendix. No evidence of perforation. No evidence of appendical base or cecal inflammation. Pre Op Diagnosis: Acute appendicitis Post-Op Diagnosis: same Anesthesia Technique: General ET Tube Primary Surgeon: Lakesha Jaramillo Fluid Replacement, Intraop: 1,000 Output, Urine Amount: 160 EBL in mLs: 10 Condition: Fair Free Text/Narrative:: Intake & Output 09/26/19 09/27/19 09/27/19 22:59 06:59 14:59 Intake Total 0 Output Total 600 Balance -600
[2019-09-27] MEDS ORDERED: Acetaminophen/oxyCODONE 325-5 MG Tab PO PRN (12:13)
[2019-09-27] MEDS ORDERED: HYDROmorphone 2 MG/ML Syringe IVPUSH PRN (12:38)
[2019-09-27] MEDS: Sertraline 50 MG Tab PO SCH (13:38)
--- NOTE | 2019-09-27 13:45 | PCM.POSTAN ---
POST ANESTHESIA ASSESSMENT - MENTAL STATUS Mental Status: Alert, Oriented - VITAL SIGNS Vital Signs: Last Vital Signs Temp 35.9 C L 09/27/19 07:50 Pulse 65 09/27/19 07:50 Resp 19 09/27/19 07:50 BP 132/80 09/27/19 07:50 Pulse Ox 95 09/27/19 07:50 - RESPIRATORY Respiratory Status: Respiratory Rate WNL, Airway Patent, O2 Saturation Stable - CARDIOVASCULAR CV Status: Pulse Rate WNL, Blood Pressure Stable - GASTROINTESTINAL GI Status: No Symptoms - PAIN Pain Score: 5 - POST OP HYDRATION Hydration Status: Adequate & Stable - OBSERVATIONS Free Text/Narrative:: No anesthesia problems
[2019-09-27] MEDS: oxyCODONE 5 MG Tab PO PRN ×2 (16:50→20:54)
--- NOTE | 2019-09-27 16:56 | PCM.SURGPN ---
- General Info Date of Service: 09/27/19 Date of Surgery/Procedure: 09/27/19 POD#: 0 Functional Status: Reports: Pain Controlled, Tolerating Diet (clear liquid). Denies: Ambulating, New Symptoms - Review of Systems General: Reports: Fatigue Pulmonary: Reports: No Symptoms Cardiovascular: Reports: No Symptoms Gastrointestinal: Reports: Abdominal Pain (at incision sites), Decreased Appetite. Denies: Flatus, Nausea, Vomiting Genitourinary: Reports: No Symptoms Musculoskeletal: Reports: No Symptoms Skin: Reports: No Symptoms - Patient Data Vitals - Most Recent: Last Vital Signs Temp 35.9 C L 09/27/19 07:50 Pulse 65 09/27/19 07:50 Resp 19 09/27/19 07:50 BP 132/80 09/27/19 07:50 Pulse Ox 95 09/27/19 07:50 Weight - Most Recent: 90.764 kg I&O - Last 24 Hours: Intake & Output 09/27/19 09/27/19 09/27/19 06:59 14:59 22:59 Intake Total 0 1000 Output Total 600 320 350 Balance -600 680 -350 Lab Results Last 24 Hrs: Laboratory Results - last 24 hr 09/26/19 09/26/19 09/26/19 Range/Units 21:26 21:32 21:32 WBC 10.06 (4.0-11.0) K/uL RBC 4.65 (4.50-5.90) M/uL Hgb 13.5 (13.0-17.0) g/dL Hct 41.4 (38.0-50.0) % MCV 89.0 (80.0-98.0) fL MCH 29.0 (27.0-32.0) pg MCHC 32.6 (31.0-37.0) g/dL RDW Std Deviation 47.5 (28.0-62.0) fl RDW Coeff of Peter 15 (11.0-15.0) % Plt Count 271 (150-400) K/uL MPV 10.40 (7.40-12.00) fL Neut % (Auto) 68.3 (48.0-80.0) % Lymph % (Auto) 22.5 (16.0-40.0) % [place] % (Auto) 8.1 (0.0-15.0) % Eos % (Auto) 0.9 (0.0-7.0) % Baso % (Auto) 0.2 (0.0-1.5) % Neut # (Auto) 6.9 H (1.4-5.7) K/uL Lymph # (Auto) 2.3 (0.6-2.4) K/uL [place] # (Auto) 0.8 (0.0-0.8) K/uL Eos # (Auto) 0.1 (0.0-0.7) K/uL Baso # (Auto) 0.0 (0.0-0.1) K/uL Nucleated RBC % 0.0 /100WBC Nucleated RBCs # 0 K/uL ESR (0-14) mm/hr INR APTT (18.6-31.3) SEC Lactate (0.20-2.00) mmol/L Sodium 132 L (136-148) mmol/L Potassium 4.3 (3.5-5.1) mmol/L Chloride 94 L (98-107) mmol/L Carbon Dioxide 28.8 (21.0-32.0) mmol/L BUN 17 (7.0-18.0) mg/dL Creatinine 1.1 (0.8-1.3) mg/dL Est Cr Clr Drug Dosing TNP Estimated GFR (MDRD) > 60.0 ml/min Glucose 411 H (74-106) mg/dL POC Glucose (60-110) mg/dL Hemoglobin A1c (4.5-6.2) % Calcium 8.9 (8.5-10.1) mg/dL Total Bilirubin 0.8 (0.2-1.0) mg/dL AST 89 H (15-37) IU/L ALT 152 H (14-63) IU/L Alkaline Phosphatase 193 H (46-116) U/L C-Reactive Protein (0.00-0.90) mg/dL Total Protein 9.4 H (6.4-8.2) g/dL Albumin 3.7 (3.4-5.0) g/dL Globulin 5.7 H (2.6-4.0) g/dL Albumin/Globulin Ratio 0.7 L (0.9-1.6) Urine Color YELLOW Urine Appearance CLEAR Urine pH 7.0 (5.0-8.0) Ur Specific [place] 1.015 (1.001-1.035) Urine Protein NEGATIVE (NEGATIVE) mg/dL Urine Glucose (UA) >=1000 (NEGATIVE) mg/dL Urine Ketones NEGATIVE (NEGATIVE) mg/dL Urine Occult Blood NEGATIVE (NEGATIVE) Urine Nitrite NEGATIVE (NEGATIVE) Urine Bilirubin NEGATIVE (NEGATIVE) Urine Urobilinogen 0.2 (<2.0) EU/dL Ur Leukocyte Esterase NEGATIVE (NEGATIVE) SARS-CoV-2 RNA (RT-PCR) (NEGATIVE) 09/26/19 09/27/19 09/27/19 Range/Units 21:32 06:00 06:00 WBC 8.03 (4.0-11.0) K/uL RBC 3.91 L (4.50-5.90) M/uL Hgb 11.0 L (13.0-17.0) g/dL Hct 34.9 L (38.0-50.0) % MCV 89.3 (80.0-98.0) fL MCH 28.1 (27.0-32.0) pg MCHC 31.5 (31.0-37.0) g/dL RDW Std Deviation 48.5 (28.0-62.0) fl RDW Coeff of Peter 15 (11.0-15.0) % Plt Count 215 (150-400) K/uL MPV 9.90 (7.40-12.00) fL Neut % (Auto) 67.2 (48.0-80.0) % Lymph % (Auto) 22.5 (16.0-40.0) % [place] % (Auto) 9.2 (0.0-15.0) % Eos % (Auto) 0.9 (0.0-7.0) % Baso % (Auto) 0.2 (0.0-1.5) % Neut # (Auto) 5.4 (1.4-5.7) K/uL Lymph # (Auto) 1.8 (0.6-2.4) K/uL [place] # (Auto) 0.7 (0.0-0.8) K/uL Eos # (Auto) 0.1 (0.0-0.7) K/uL Baso # (Auto) 0.0 (0.0-0.1) K/uL Nucleated RBC % 0.0 /100WBC Nucleated RBCs # 0 K/uL ESR 45 H (0-14) mm/hr INR APTT (18.6-31.3) SEC Lactate 1.0 (0.20-2.00) mmol/L Sodium (136-148) mmol/L Potassium (3.5-5.1) mmol/L Chloride (98-107) mmol/L Carbon Dioxide (21.0-32.0) mmol/L BUN (7.0-18.0) mg/dL Creatinine (0.8-1.3) mg/dL Est Cr Clr Drug Dosing Estimated GFR (MDRD) ml/min Glucose (74-106) mg/dL POC Glucose (60-110) mg/dL Hemoglobin A1c (4.5-6.2) % Calcium (8.5-10.1) mg/dL Total Bilirubin (0.2-1.0) mg/dL AST (15-37) IU/L ALT (14-63) IU/L Alkaline Phosphatase (46-116) U/L C-Reactive Protein (0.00-0.90) mg/dL Total Protein (6.4-8.2) g/dL Albumin (3.4-5.0) g/dL Globulin (2.6-4.0) g/dL Albumin/Globulin Ratio (0.9-1.6) Urine Color Urine Appearance Urine pH (5.0-8.0) Ur Specific [place] (1.001-1.035) Urine Protein (NEGATIVE) mg/dL Urine Glucose (UA) (NEGATIVE) mg/dL Urine Ketones (NEGATIVE) mg/dL Urine Occult Blood (NEGATIVE) Urine Nitrite (NEGATIVE) Urine Bilirubin (NEGATIVE) Urine Urobilinogen (<2.0) EU/dL Ur Leukocyte Esterase (NEGATIVE) SARS-CoV-2 RNA (RT-PCR) (NEGATIVE) 09/27/19 09/27/19 09/27/19 Range/Units 06:00 06:00 06:20 WBC (4.0-11.0) K/uL RBC (4.50-5.90) M/uL Hgb (13.0-17.0) g/dL Hct (38.0-50.0) % MCV (80.0-98.0) fL MCH (27.0-32.0) pg MCHC (31.0-37.0) g/dL RDW Std Deviation (28.0-62.0) fl RDW Coeff of Peter (11.0-15.0) % Plt Count (150-400) K/uL MPV (7.40-12.00) fL Neut % (Auto) (48.0-80.0) % Lymph % (Auto) (16.0-40.0) % [place] % (Auto) (0.0-15.0) % Eos % (Auto) (0.0-7.0) % Baso % (Auto) (0.0-1.5) % Neut # (Auto) (1.4-5.7) K/uL Lymph # (Auto) (0.6-2.4) K/uL [place] # (Auto) (0.0-0.8) K/uL Eos # (Auto) (0.0-0.7) K/uL Baso # (Auto) (0.0-0.1) K/uL Nucleated RBC % /100WBC Nucleated RBCs # K/uL ESR (0-14) mm/hr INR 0.95 APTT 24.0 (18.6-31.3) SEC Lactate (0.20-2.00) mmol/L Sodium 136 (136-148) mmol/L Potassium 4.3 (3.5-5.1) mmol/L Chloride 102 (98-107) mmol/L Carbon Dioxide 28.3 (21.0-32.0) mmol/L BUN 15 (7.0-18.0) mg/dL Creatinine 1.0 (0.8-1.3) mg/dL Est Cr Clr Drug Dosing 90.89 Estimated GFR (MDRD) > 60.0 ml/min Glucose 217 H (74-106) mg/dL POC Glucose (60-110) mg/dL Hemoglobin A1c 7.8 H (4.5-6.2) % Calcium 8.0 L (8.5-10.1) mg/dL Total Bilirubin 1.2 H (0.2-1.0) mg/dL AST 80 H (15-37) IU/L ALT 137 H (14-63) IU/L Alkaline Phosphatase 162 H (46-116) U/L C-Reactive Protein 1.10 H (0.00-0.90) mg/dL Total Protein 7.6 (6.4-8.2) g/dL Albumin 3.1 L (3.4-5.0) g/dL Globulin 4.5 H (2.6-4.0) g/dL Albumin/Globulin Ratio 0.7 L (0.9-1.6) Urine Color Urine Appearance Urine pH (5.0-8.0) Ur Specific [place] (1.001-1.035) Urine Protein (NEGATIVE) mg/dL Urine Glucose (UA) (NEGATIVE) mg/dL Urine Ketones (NEGATIVE) mg/dL Urine Occult Blood (NEGATIVE) Urine Nitrite (NEGATIVE) Urine Bilirubin (NEGATIVE) Urine Urobilinogen (<2.0) EU/dL Ur Leukocyte Esterase (NEGATIVE) SARS-CoV-2 RNA (RT-PCR) (NEGATIVE) 09/27/19 09/27/19 09/27/19 Range/Units 07:41 08:30 12:22 WBC (4.0-11.0) K/uL RBC (4.50-5.90) M/uL Hgb (13.0-17.0) g/dL Hct (38.0-50.0) % MCV (80.0-98.0) fL MCH (27.0-32.0) pg MCHC (31.0-37.0) g/dL RDW Std Deviation (28.0-62.0) fl RDW Coeff of Peter (11.0-15.0) % Plt Count (150-400) K/uL MPV (7.40-12.00) fL Neut % (Auto) (48.0-80.0) % Lymph % (Auto) (16.0-40.0) % [place] % (Auto) (0.0-15.0) % Eos % (Auto) (0.0-7.0) % Baso % (Auto) (0.0-1.5) % Neut # (Auto) (1.4-5.7) K/uL Lymph # (Auto) (0.6-2.4) K/uL [place] # (Auto) (0.0-0.8) K/uL Eos # (Auto) (0.0-0.7) K/uL Baso # (Auto) (0.0-0.1) K/uL Nucleated RBC % /100WBC Nucleated RBCs # K/uL ESR (0-14) mm/hr INR APTT (18.6-31.3) SEC Lactate (0.20-2.00) mmol/L Sodium (136-148) mmol/L Potassium (3.5-5.1) mmol/L Chloride (98-107) mmol/L Carbon Dioxide (21.0-32.0) mmol/L BUN (7.0-18.0) mg/dL Creatinine (0.8-1.3) mg/dL Est Cr Clr Drug Dosing Estimated GFR (MDRD) ml/min Glucose (74-106) mg/dL POC Glucose 199 H 185 H (60-110) mg/dL Hemoglobin A1c (4.5-6.2) % Calcium (8.5-10.1) mg/dL Total Bilirubin (0.2-1.0) mg/dL AST (15-37) IU/L ALT (14-63) IU/L Alkaline Phosphatase (46-116) U/L C-Reactive Protein (0.00-0.90) mg/dL Total Protein (6.4-8.2) g/dL Albumin (3.4-5.0) g/dL Globulin (2.6-4.0) g/dL Albumin/Globulin Ratio (0.9-1.6) Urine Color Urine Appearance Urine pH (5.0-8.0) Ur Specific [place] (1.001-1.035) Urine Protein (NEGATIVE) mg/dL Urine Glucose (UA) (NEGATIVE) mg/dL Urine Ketones (NEGATIVE) mg/dL Urine Occult Blood (NEGATIVE) Urine Nitrite (NEGATIVE) Urine Bilirubin (NEGATIVE) Urine Urobilinogen (<2.0) EU/dL Ur Leukocyte Esterase (NEGATIVE) SARS-CoV-2 RNA (RT-PCR) NEGATIVE (NEGATIVE) Med Orders - Current: Current Medications Albuterol (Proventil Neb Soln) 2.5 mg NEB ONETIME PRN PRN Reason: Wheezing Atropine Sulfate (Atropine 0.1 Mg/Ml) 0.5 mg IVPUSH ASDIRECTED PRN PRN Reason: Hypo-perfusion Atropine Sulfate (Atropine 0.1 Mg/Ml) 1 mg IVPUSH ASDIRECTED PRN PRN Reason: Hypo-Perfusion Dextrose/Water (Dextrose 50% In Water) 50 ml IVPUSH ASDIRECTED PRN PRN Reason: Hypoglycemia Diphenhydramine HCl (Benadryl) 25 mg PO Q4H PRN PRN Reason: Itching Epinephrine HCl (Epinephrine 1:10,000) 1 mg IVPUSH ASDIRECTED PRN PRN Reason: ACLS Guidelines Fentanyl (Sublimaze) 50 mcg IVPUSH Q5M PRN PRN Reason: Pain Hydromorphone HCl (Dilaudid) 0.5 mg IVPUSH Q1H PRN PRN Reason: Pain (severe 7-10) Last Admin: 09/27/19 09:33 Dose: 0.5 mg Hydromorphone HCl (Dilaudid) 1 - 2 mg IVPUSH ONETIME PRN PRN Reason: Pain Lactated Ringer's (Ringers, Lactated) 1,000 mls @ 125 mls/hr IV ASDIRECTED [facility] Last Admin: 09/27/19 14:10 Dose: 125 mls/hr Piperacillin Sod/Tazobactam (Sod 3.375 gm/ Sodium Chloride) 50 mls @ 100 mls/ hr IV Q6H [facility] Last Admin: 09/27/19 11:08 Dose: 100 mls/hr Insulin Aspart (Novolog) 0 unit SUBCUT TIDAC [facility]; Protocol Last Admin: 09/27/19 12:40 Dose: Not Given Metformin HCl (Glucophage Xr) 500 mg PO BIDMEALS [facility] Naloxone HCl (Narcan) 0.1 mg IVPUSH ASDIRECTED PRN PRN Reason: Respiratory Depression Ondansetron HCl (Zofran) 4 mg IVPUSH Q6H PRN PRN Reason: Nausea/Vomiting Oxycodone HCl (Oxycodone) 10 mg PO Q4H PRN PRN Reason: Pain (moderate 4-6) Pantoprazole Sodium (Protonix) 40 mg PO ACBREAKFAST [facility] Ursodiol 300 Mg Cap 1 each PO BIDMEALS [facility] Mesalamine 800 Mg 0 each PO TID [facility] Sertraline HCl (Zoloft) 50 mg PO DAILY [facility] Last Admin: 09/27/19 13:38 Dose: 50 mg Sodium Chloride (Saline Flush) 10 ml FLUSH ASDIRECTED PRN PRN Reason: Keep Vein Open Sodium Chloride (Saline Flush) 2.5 ml FLUSH ASDIRECTED PRN PRN Reason: Keep Vein Open Sodium Chloride (Normal Saline) 10 ml IV ASDIRECTED PRN PRN Reason: IV Use Discontinued Medications Bupivacaine HCl (Marcaine 0.5%) Confirm Administered Dose 30 ml .ROUTE .STK-MED ONE Stop: 09/27/19 09:55 Fentanyl (Sublimaze) Confirm Administered Dose 250 mcg .ROUTE .STK-MED ONE Stop: 09/27/19 09:55 Glycopyrrolate (Robinul) Confirm Administered Dose 0.4 mg .ROUTE .STK-MED ONE Stop: 09/27/19 11:33 Hydromorphone HCl (Dilaudid) 0.5 mg IVPUSH ONETIME ONE Stop: 09/27/19 00:50 Last Admin: 09/27/19 00:58 Dose: 0.5 mg Sodium Chloride (Normal Saline) 1,000 mls @ 1,000 mls/hr IV .Bolus ONE Stop: 09/26/19 22:07 Last Admin: 09/26/19 21:35 Dose: 1,000 mls/hr Sodium Chloride (Normal Saline) 1,000 mls @ 999 mls/hr IV .Bolus ONE Stop: 09/27/19 00:39 Last Admin: 09/26/19 23:41 Dose: 999 mls/hr Piperacillin Sod/Tazobactam (Sod 3.375 gm/ Sodium Chloride) 50 mls @ 100 mls/ hr IV ONETIME ONE Stop: 09/27/19 00:32 Last Admin: 09/27/19 00:22 Dose: 100 mls/hr Pantoprazole Sodium 40 mg/ (Sodium Chloride) 10 mls @ 300 mls/hr IV DAILY [facility] Last Admin: 09/27/19 09:33 Dose: 300 mls/hr Piperacillin Sod/Tazobactam (Sod 3.375 gm/ Sodium Chloride) 50 mls @ 100 mls/ hr IV ONETIME ONE Stop: 09/27/19 11:29 Last Admin: 09/27/19 13:33 Dose: Not Given Iopamidol (Isovue-370 (76%)) 100 ml IVPUSH ONETIME ONE Stop: 09/26/19 22:37 Last Admin: 09/26/19 22:36 Dose: 100 ml Lidocaine (Xylocaine-Mpf 2%) Confirm Administered Dose 5 ml .ROUTE .STK-MED ONE Stop: 09/27/19 09:55 Midazolam HCl (Versed 1 Mg/Ml) Confirm Administered Dose 2 mg .ROUTE .STK-MED ONE Stop: 09/27/19 09:55 Morphine Sulfate (Morphine) 4 mg IVPUSH ONETIME ONE Stop: 09/26/19 21:11 Last Admin: 09/26/19 21:37 Dose: 4 mg Morphine Sulfate (Morphine) 6 mg IVPUSH ONETIME ONE Stop: 09/26/19 23:29 Last Admin: 09/26/19 23:42 Dose: 6 mg Ondansetron HCl (Zofran) 4 mg IVPUSH ONETIME ONE Stop: 09/26/19 21:11 Last Admin: 09/26/19 21:36 Dose: 4 mg Ondansetron HCl (Zofran) Confirm Administered Dose 4 mg .ROUTE .STK-MED ONE Stop: 09/27/19 11:34 Oxycodone/Acetaminophen (Percocet 325-5 Mg) 2 tab PO Q4H PRN PRN Reason: Pain (severe 7-10) Propofol (Diprivan 20 Ml) Confirm Administered Dose 200 mg .ROUTE .STK-MED ONE Stop: 09/27/19 09:55 Rocuronium [place] (Zemuron) Confirm Administered Dose 100 mg .ROUTE .STK-MED ONE Stop: 09/27/19 09:55 - Exam Wound/Incisions: Dressing Dry and Intact General: Alert, Oriented HEENT: Pupils Equal, Pupils Reactive Lungs: Normal Respiratory Effort Cardiovascular: Regular Rate GI/Abdominal Exam: Soft, Non-Tender, No Mass, Distended, Other (RLQ pain improved. ) Skin: Warm, Dry, Intact Neurological: No New Focal Deficit Psy/Mental Status: Alert, Normal Affect, Normal Mood Sepsis Event Note - Evaluation Sepsis Screening Result: No Definite Risk - Focused Exam Vital Signs: Vital Signs Temp Pulse Resp BP Pulse Ox 09/27/19 07:50 35.9 C L 65 19 132/80 95 Date Exam was Performed: 09/27/19 Time Exam was Performed: 16:52 - Problem List & Annotations (1) Appendicitis SNOMED Code(s): 83158425 Code(s): K37 - UNSPECIFIED APPENDICITIS Status: Acute Current Visit: Yes (2) Abdominal pain SNOMED Code(s): 78116137 Code(s): R10.9 - UNSPECIFIED ABDOMINAL PAIN Status: Acute Current Visit: Yes Qualifiers: Abdominal location: right upper quadrant Qualified Code(s): R10.11 - Right upper quadrant pain - Problem List Review Problem List Initiated/Reviewed/Updated: Yes - My Orders Last 24 Hours: Active Orders 24 hr Category Date Time Status Patient Status [ADT] Routine ADT 09/27/19 01:40 Active Blood Glucose Check, Bedside [RC] PRN Care 09/27/19 11:10 Active Communication Order [RC] ROUTINE Care 09/27/19 12:15 Active Intake and Output [RC] Q12H Care 09/27/19 01:41 Active Notify Provider Vital Signs [RC] ASDIRECTED Care 09/27/19 11:10 Active Notify Provider Vital Signs [RC] PRN Care 09/27/19 01:41 Active Oxygen Therapy [RC] PRN Care 09/27/19 01:40 Active Oxygen Therapy [RC] PRN Care 09/27/19 11:10 Active RT Aerosol Therapy [RC] ASDIRECTED Care 09/27/19 11:10 Active RT Aerosol Therapy [RC] ASDIRECTED Care 09/27/19 11:10 Active RT Incentive Spirometry [RC] Q1HWA Care 09/27/19 01:40 Active [employer] Discontinue [Cardiac Monitoring Care 09/27/19 01:14 Active Discontinue] [RC] Click to Edit Telemetry Monitoring [Cardiac Monitoring] [RC] Q8H Care 09/27/19 00:00 Active Up ad Jaja [RC] ASDIRECTED Care 09/27/19 01:40 Active Vital Signs [RC] PER UNIT ROUTINE Care 09/27/19 01:40 Active Regular Diet [DIET] Diet 09/28/19 Breakfast Ordered CBC W/O DIFF,HEMOGRAM [HEME] AM Lab 09/28/19 05:11 Ordered Albuterol [Proventil Neb Soln] Med 09/27/19 11:10 Active 2.5 mg NEB ONETIME PRN Atropine [Atropine 0.1 MG/ML] Med 09/27/19 11:10 Active 0.5 mg IVPUSH ASDIRECTED PRN Atropine [Atropine 0.1 MG/ML] Med 09/27/19 11:10 Active 1 mg IVPUSH ASDIRECTED PRN Dextrose 50% in Water Med 09/27/19 11:10 Active 50 ml IVPUSH ASDIRECTED PRN EPINEPHrine [EPINEPHrine 1:10,000] Med 09/27/19 11:10 Active 1 mg IVPUSH ASDIRECTED PRN HYDROmorphone [Dilaudid] Med 09/27/19 01:40 Active 0.5 mg IVPUSH Q1H PRN HYDROmorphone [Dilaudid] Med 09/27/19 12:38 Active 1 - 2 mg IVPUSH ONETIME PRN Insulin Aspart [NovoLOG] Med 09/27/19 07:30 Active See Protocol SUBCUT TIDAC Lactated Ringers [Ringers, Lactated] 1,000 ml Med 09/27/19 01:45 Active IV ASDIRECTED Naloxone [Narcan] Med 09/27/19 11:10 Active 0.1 mg IVPUSH ASDIRECTED PRN Ondansetron [Zofran] Med 09/27/19 01:40 Active 4 mg IVPUSH Q6H PRN Pantoprazole [ProTONIX] Med 09/28/19 07:30 Active 40 mg PO ACBREAKFAST Patient's Own Medication [Ptom] Med 09/27/19 22:00 Active 0 each PO TID Patient's Own Medication [Ptom] Med 09/27/19 17:00 Active 1 each PO BIDMEALS Piperacillin/Tazobactam [Piperacil-Tazobact] 3.375 gm Med 09/27/19 06:00 Active Sodium Chloride 0.9% [Normal Saline] 50 ml IV Q6H Sertraline [Zoloft] Med 09/27/19 12:15 Active 50 mg PO DAILY Sodium Chloride 0.9% [Normal Saline] Med 09/27/19 01:40 Active 10 ml IV ASDIRECTED PRN Sodium Chloride 0.9% [Saline Flush] Med 09/27/19 01:40 Active 10 ml FLUSH ASDIRECTED PRN Sodium Chloride 0.9% [Saline Flush] Med 09/27/19 01:40 Active 2.5 ml FLUSH ASDIRECTED PRN diphenhydrAMINE [Benadryl] Med 09/27/19 01:40 Active 25 mg PO Q4H PRN fentaNYL [Sublimaze] Med 09/27/19 11:10 Active 50 mcg IVPUSH Q5M PRN metFORMIN [Glucophage XR] Med 09/27/19 17:00 Active 500 mg PO BIDMEALS oxyCODONE Med 09/27/19 12:17 Active 10 mg PO Q4H PRN May Take Own Home Medications [OM.PC] Routine Oth 09/27/19 12:17 Ordered Peripheral IV Insertion Adult [OM.PC] Urgent Oth 09/27/19 01:40 Ordered Resuscitation Status Routine Resus Stat 09/27/19 01:40 Ordered Medication Orders Albuterol (Proventil Neb Soln) 2.5 mg NEB ONETIME PRN PRN Reason: Wheezing Atropine Sulfate (Atropine 0.1 Mg/Ml) 0.5 mg IVPUSH ASDIRECTED PRN PRN Reason: Hypo-perfusion Atropine Sulfate (Atropine 0.1 Mg/Ml) 1 mg IVPUSH ASDIRECTED PRN PRN Reason: Hypo-Perfusion Dextrose/Water (Dextrose 50% In Water) 50 ml IVPUSH ASDIRECTED PRN PRN Reason: Hypoglycemia Diphenhydramine HCl (Benadryl) 25 mg PO Q4H PRN PRN Reason: Itching Epinephrine HCl (Epinephrine 1:10,000) 1 mg IVPUSH ASDIRECTED PRN PRN Reason: ACLS Guidelines Fentanyl (Sublimaze) 50 mcg IVPUSH Q5M PRN PRN Reason: Pain Hydromorphone HCl (Dilaudid) 0.5 mg IVPUSH Q1H PRN PRN Reason: Pain (severe 7-10) Last Admin: 09/27/19 09:33 Dose: 0.5 mg Admin: 09/27/19 07:30 Dose: 0.5 mg Admin: 09/27/19 06:26 Dose: 0.5 mg Admin: 09/27/19 04:53 Dose: 0.5 mg Admin: 09/27/19 03:40 Dose: 0.5 mg Admin: 09/27/19 02:18 Dose: 0.5 mg Hydromorphone HCl (Dilaudid) 1 - 2 mg IVPUSH ONETIME PRN PRN Reason: Pain Lactated Ringer's (Ringers, Lactated) 1,000 mls @ 125 mls/hr IV ASDIRECTED [facility] Last Admin: 09/27/19 14:10 Dose: 125 mls/hr Infusion: 09/27/19 10:21 Dose: 125 mls/hr Admin: 09/27/19 02:21 Dose: 125 mls/hr Piperacillin Sod/Tazobactam (Sod 3.375 gm/ Sodium Chloride) 50 mls @ 100 mls/ hr IV Q6H [facility] Last Admin: 09/27/19 11:08 Dose: 100 mls/hr Infusion: 09/27/19 05:29 Dose: 100 mls/hr Admin: 09/27/19 04:59 Dose: 100 mls/hr Insulin Aspart (Novolog) 0 unit SUBCUT TIDAC [facility]; Protocol Last Admin: 09/27/19 12:40 Dose: Admin: 09/27/19 07:42 Dose: 1 unit Metformin HCl (Glucophage Xr) 500 mg PO BIDMEALS [facility] Naloxone HCl (Narcan) 0.1 mg IVPUSH ASDIRECTED PRN PRN Reason: Respiratory Depression Ondansetron HCl (Zofran) 4 mg IVPUSH Q6H PRN PRN Reason: Nausea/Vomiting Oxycodone HCl (Oxycodone) 10 mg PO Q4H PRN PRN Reason: Pain (moderate 4-6) Pantoprazole Sodium (Protonix) 40 mg PO ACBREAKFAST [facility] Ursodiol 300 Mg Cap 1 each PO BIDMEALS [facility] Mesalamine 800 Mg 0 each PO TID [facility] Sertraline HCl (Zoloft) 50 mg PO DAILY [facility] Last Admin: 09/27/19 13:38 Dose: 50 mg Sodium Chloride (Saline Flush) 10 ml FLUSH ASDIRECTED PRN PRN Reason: Keep Vein Open Sodium Chloride (Saline Flush) 2.5 ml FLUSH ASDIRECTED PRN PRN Reason: Keep Vein Open Sodium Chloride (Normal Saline) 10 ml IV ASDIRECTED PRN PRN Reason: IV Use - Plan Plan (Free Text/Narrative):: Patient's RLQ pain is gone since surgery. Now having abdominal pain along incisions. Patient has been sleeping on and off since surgery. Has percocet and IV dilaudid as needed for pain. Vitals stable. Tolerating clear liquids. Will advance to regular. Continue IVF and IV antibiotics for tonight. Will get CBC in am.
[2019-09-27] MEDS: metFORMIN 500 MG Tab.ER PO SCH (17:08)
--- NOTE | 2019-09-27 17:32 | OR ---
SURGEON: LAKESHA JARAMILLO MD DATE OF PROCEDURE: 09/27/2019 PREOPERATIVE DIAGNOSIS: Acute appendicitis. POSTOPERATIVE DIAGNOSIS: Acute appendicitis. PROCEDURE PERFORMED: Laparoscopic appendectomy. PRIMARY SURGEON: Lakesha Jaramillo MD. ANESTHESIA: General endotracheal anesthesia. FLUIDS: 1000 mL crystalloid. ESTIMATED BLOOD LOSS: 10 mL. URINE OUTPUT: 160 mL. FINDINGS: Acutely enlarged and inflamed appendix. No involvement of the base of the appendix. No evidence of cecal inflammation. COMPLICATIONS: None. INDICATIONS: The patient is a 39-year-old male who presented with a 1-day history of abdominal pain. Workup did not show an elevated white blood cell count, but the patient was found on CT scan to have an enlarged and inflamed appendix. The patient has a history of ulcerative colitis, but this has been well controlled on medications. Review of the CT scan revealed no evidence of inflammation around the cecum or the base of the appendix. I reviewed the imaging with my senior colleague who agreed this appeared to be appendicitis. I consulted Gastroenterology who agreed that this was likely appendicitis and not an ulcerative colitis flare. The patient and I discussed the need for an appendectomy. I explained that I would attempt this laparoscopically, but convert to open should I be unable to perform it safely. The patient and I discussed the procedure; expected perioperative course; as well as the risks including bleeding, infection, or damage to surrounding structures. He verbalized understanding and wished to proceed. PROCEDURE IN DETAIL: The patient was brought to the OR and placed on the OR table in supine position. A time-out was completed verifying the patient's name, age, date of , allergies, and procedure to be performed. General endotracheal anesthesia was induced. A Pa catheter was placed and the abdomen was prepped and draped in usual standard fashion with the left arm tucked to the patient's side. I anesthetized an area 3 fingerbreadths below the left subcostal margin in the midclavicular line with 0.5% Marcaine plain. A 1-cm incision was made using an 11 blade. A 5-mm optical trocar was used to gain entry into the left upper quadrant under direct visualization. All layers of the abdominal wall were visualized upon entry. The abdomen was insufflated and a 5-mm 30-degree scope was inserted. I inspected the area underneath my initial trocar placement. No damage to surrounding structures was noted. A 5-mm trocar was placed under direct visualization just left and lateral of the umbilicus. A 12-mm trocar was placed along the infraumbilical midline under direct visualization as well. The patient was placed into Trendelenburg position and airplaned slightly to the left. I swept the small bowel away from the right lower quadrant and identified the cecum. Just lateral to the cecum was an inflamed and enlarged-appearing appendiceal tip. This was elevated and the cecum and appendix were then rotated medially. The appendix appeared grossly enlarged and inflamed with no evidence of perforation. I followed the appendix down to the base of the cecum. The base of the appendix did not appear to be grossly inflamed. The cecum itself was soft and pliable with no signs of gross inflammation. Using a Harmonic scalpel device, I took down the appendiceal mesentery from distal to proximal staying as close to the appendix as I could. As I got closer to the base of the appendix, the appendiceal mesentery twisted. Using a [place] dissector, I created a plane between the appendiceal mesentery and the body of the appendix and used this to guide my dissection. Close to the base of the appendix, however, during the firing of my Harmonic scalpel, the proximal cut edge of the appendiceal mesentery tore and I noted arterial bleeding. A 5-mm clip flat ironer was brought into the field and I fired several times across this vessel. Hemostasis was achieved. I continued my dissection down to the base of the appendix. Once the base of the appendix was completely freed from the surrounding structures, I closely inspected my operative field. There did not appear to be any further bleeding from along the cut appendiceal mesentery, but I placed a piece of Surgicel over that area. I closely inspected my surrounding small bowel and colon. No damage from my Harmonic scalpel was noted. An endoscopic stapling device was brought into the field. I stapled and transected across the base of the appendix using a 45- mm blue load of kirstopher. The appendix was then placed in an Endo Catch bag and removed through the 12-mm port site. I then reinserted my 12-mm trocar and inspected my operative field. I copiously irrigated the right lower quadrant with normal saline and suctioned this out. I removed the Surgicel and inspected the cut edge of my appendiceal mesentery. It appeared to be hemostatic with no evidence of any bleeding. I suctioned away any free fluid. I then turned my attention to the 12-mm trocar site. The 12-mm trocar was removed and I closed the fascia at the infraumbilical port site with interrupted 0 Vicryl suture using a Paco- Rizwana device. Before desufflating, I inspected my operative field one more time and it was dry. A photograph was taken during the case of the appendix as well as the liver edge. The liver appeared grossly normal with no evidence of cirrhosis. The 5-mm trocars were then removed and the abdomen allowed to desufflate. The 12-mm trocar site was closed with interrupted 3-0 Vicryl in the subcutaneous fat layer and the skin was closed with a running 4-0 Monocryl stitch. The 5-mm trocar sites were closed with interrupted 4-0 Monocryl sutures. Steri-Strips and sterile dressings were applied. The patient tolerated the procedure well and was transferred to the PACU in stable condition. NATALI NG /[id number] MTDEvert
[2019-09-27] MEDS: Ursodiol 300 MG Cap PO SCH (17:44)
[2019-09-27] MEDS: MESALAMINE 800 MG PO SCH (21:00)
[2019-09-28] MEDS: oxyCODONE 5 MG Tab PO PRN ×2 (02:48→08:00)
[2019-09-28] MEDS: Lactated Ringers 1,000 ML IV SCH (03:02)
[2019-09-28] MEDS: Piperacillin/Tazobactam 3.375 GM in Sodium Chloride 0.9% 50 ML IV SCH (04:59)
--- NOTE | 2019-09-28 06:27 | PCM48HPAN ---
Post Anesthesia Note - EVALUATION WITHIN 48HRS OF ANESTHETIC Vital Signs in Normal Range: Yes Patient Participated in Evaluation: Yes Respiratory Function Stable: Yes Airway Patent: Yes Cardiovascular Function Stable: Yes Hydration Status Stable: Yes Pain Control Satisfactory: Yes Nausea and Vomiting Control Satisfactory: Yes Mental Status Recovered: Yes Vital Signs: Last Vital Signs Temp 36.8 C 09/28/19 04:00 Pulse 70 09/28/19 04:00 Resp 18 09/28/19 04:00 BP 138/78 09/28/19 04:00 Pulse Ox 95 09/28/19 04:00
[2019-09-28] MEDS ORDERED: Pantoprazole 40 MG Tab.CR PO SCH (07:30)
[2019-09-28] MEDS: MESALAMINE 800 MG PO SCH (07:56)
[2019-09-28] MEDS: Insulin Aspart 100 Units/ML 3 ML Pen SUBCUT SCH (07:57)
[2019-09-28] MEDS: metFORMIN 500 MG Tab.ER PO SCH (08:00)
[2019-09-28] MEDS: Ursodiol 300 MG Cap PO SCH (08:02)
[2019-09-28] MEDS ORDERED: HYDROmorphone 1 MG/ML Syringe IVPUSH PRN (08:15)
--- NOTE | 2019-09-28 08:59 | PCM.DCSUM1 ---
Discharge Summary - Hospital Course Free Text/Narrative:: Patient is a 39 year old male who presented with RLQ pain for one day. Work up revealed a distended appendix consistent with appendicitis. He has a history of ulcerative colitis. After reviewing his CT and work up with my senior visual designer and a internet assessor it was felt this was truly appendicitis. I took the patient to the OR and performed a laparoscopic appendectomy. Intraoperatively, the appendix appeared acutely inflamed and distended, but there was no evidence of perforation or inflammation around the cecum. He did well post operatively. Pain was well controlled with oxycodone. He is urinating. He was able to ambulate without difficulty. Vital signs were stable. His diet was advanced without difficulty. He was discharged home. - Discharge Data Discharge Date: 09/28/19 Discharge Disposition: Home, Self-Care 01 Condition: Fair - Referral to Home Health Primary Care Physician: PCP None - Discharge Diagnosis/Problem(s) (1) Appendicitis SNOMED Code(s): 61178934 ICD Code: K37 - UNSPECIFIED APPENDICITIS Status: Acute Current Visit: Yes (2) Abdominal pain SNOMED Code(s): 39351491 ICD Code: R10.9 - UNSPECIFIED ABDOMINAL PAIN Status: Acute Current Visit : Yes Qualifiers: Abdominal location: right upper quadrant Qualified Code(s): R10.11 - Right upper quadrant pain - Patient Summary/Data Operative Procedure(s) Performed: Laparoscopic appendectomy - Patient Instructions Diet: Regular Diet as Tolerated Activity: No Lifting Over 20 Pounds (for four weeks ), Rest and Relax Today Activity, Other: No work for one week Driving: Do Not Drive (for one week ) Showering/Bathing: No Showering (for 2 days after surgery), No Tub Bathing/ Swimming (for 2 weeks ) Wound/Incision Care: Keep Operative Site/Wound Site Clean and Dry Notify Provider of: Fever, Increased Pain, Swelling and Redness, Drainage, Nausea and/or Vomiting Other/Special Instructions: No work from 09/26-10/09. No lifting >20lb from 09/26- 10/27 - Discharge Plan *PRESCRIPTION DRUG MONITORING PROGRAM REVIEWED*: Yes *COPY OF PRESCRIPTION DRUG MONITORING REPORT IN PATIENT FE: Yes Home Medications: Home Meds Esomeprazole [NexIUM] 40 mg PO DAILY 09/27/19 [History] Mesalamine [Asacol Hd] 800 mg PO TID 09/27/19 [History] Sertraline [Zoloft] 50 mg PO DAILY 09/27/19 [History] Valsartan/Hydrochlorothiazide [Valsartan-Hctz 160-25 mg Tab] 1 each PO DAILY [History] atorvaSTATin [Lipitor] 40 mg PO DAILY 09/27/19 [History] metFORMIN [Glucophage] 500 mg PO BID 09/27/19 [History] ursodioL [Ursodiol] 500 mg PO BID 09/27/19 [History] Patient Handouts: Laparoscopic Appendectomy, Adult, Care After, [id number], Appendicitis, Adult, [id number] Referrals: Lakesha Jaramillo MD [Physician] - - Discharge Summary/Plan Comment DC Time >30 min.: No - General Info Date of Service: 09/28/19 Functional Status: Reports: Pain Controlled, Tolerating Diet, Ambulating - Review of Systems General: Reports: No Symptoms HEENT: Reports: No Symptoms Pulmonary: Reports: No Symptoms Cardiovascular: Reports: No Symptoms Gastrointestinal: Reports: No Symptoms. Denies: Flatus Genitourinary: Reports: No Symptoms Musculoskeletal: Reports: No Symptoms Skin: Reports: No Symptoms - Patient Data Vitals - Most Recent: Last Vital Signs Temp 36.8 C 09/28/19 04:00 Pulse 70 09/28/19 04:00 Resp 18 09/28/19 04:00 BP 138/78 09/28/19 04:00 Pulse Ox 95 09/28/19 04:00 Weight - Most Recent: 90.764 kg I&O - Last 24 hours: Intake & Output 09/27/19 09/28/19 09/28/19 22:59 06:59 14:59 Intake Total 4279 Output Total 350 1625 Balance -350 2654 Lab Results - Last 24 hrs: Laboratory Results - last 24 hr 09/27/19 09/27/19 09/27/19 Range/Units 08:30 12:22 17:25 WBC (4.0-11.0) K/uL RBC (4.50-5.90) M/uL Hgb (13.0-17.0) g/dL Hct (38.0-50.0) % MCV (80.0-98.0) fL MCH (27.0-32.0) pg MCHC (31.0-37.0) g/dL RDW Std Deviation (28.0-62.0) fl RDW Coeff of Peter (11.0-15.0) % Plt Count (150-400) K/uL MPV (7.40-12.00) fL Nucleated RBC % /100WBC Nucleated RBCs # K/uL POC Glucose 185 H 180 H (60-110) mg/dL SARS-CoV-2 RNA (RT-PCR) NEGATIVE (NEGATIVE) 09/28/19 09/28/19 Range/Units 05:40 07:48 WBC 7.68 (4.0-11.0) K/uL RBC 3.70 L (4.50-5.90) M/uL Hgb 10.6 L (13.0-17.0) g/dL Hct 32.9 L (38.0-50.0) % MCV 88.9 (80.0-98.0) fL MCH 28.6 (27.0-32.0) pg MCHC 32.2 (31.0-37.0) g/dL RDW Std Deviation 48.3 (28.0-62.0) fl RDW Coeff of Peter 15 (11.0-15.0) % Plt Count 197 (150-400) K/uL MPV 9.80 (7.40-12.00) fL Nucleated RBC % 0.0 /100WBC Nucleated RBCs # 0 K/uL POC Glucose 204 H (60-110) mg/dL SARS-CoV-2 RNA (RT-PCR) (NEGATIVE) Med Orders - Current: Current Medications Diphenhydramine HCl (Benadryl) 25 mg PO Q4H PRN PRN Reason: Itching Hydromorphone HCl (Dilaudid) 1 - 2 mg IVPUSH ONETIME PRN PRN Reason: Pain Hydromorphone HCl (Dilaudid) 0.5 mg IVPUSH Q1H PRN PRN Reason: Pain (severe 7-10) Insulin Aspart (Novolog) 0 unit SUBCUT TIDAC [facility]; Protocol Last Admin: 09/28/19 07:57 Dose: 2 unit Metformin HCl (Glucophage Xr) 500 mg PO BIDMEALS [facility] Last Admin: 09/28/19 08:00 Dose: 500 mg Ondansetron HCl (Zofran) 4 mg IVPUSH Q6H PRN PRN Reason: Nausea/Vomiting Oxycodone HCl (Oxycodone) 10 mg PO Q4H PRN PRN Reason: Pain (moderate 4-6) Last Admin: 09/28/19 08:00 Dose: 10 mg Pantoprazole Sodium (Protonix) 40 mg PO ACBREAKFAST [facility] Last Admin: 09/28/19 08:00 Dose: 40 mg Ursodiol 300 Mg Cap 1 each PO BIDMEALS [facility] Last Admin: 09/28/19 08:02 Dose: 1 each Mesalamine 800 Mg 0 each PO TID [facility] Last Admin: 09/28/19 07:56 Dose: 1 each Sertraline HCl (Zoloft) 50 mg PO DAILY [facility] Last Admin: 09/27/19 13:38 Dose: 50 mg Sodium Chloride (Saline Flush) 10 ml FLUSH ASDIRECTED PRN PRN Reason: Keep Vein Open Sodium Chloride (Saline Flush) 2.5 ml FLUSH ASDIRECTED PRN PRN Reason: Keep Vein Open Sodium Chloride (Normal Saline) 10 ml IV ASDIRECTED PRN PRN Reason: IV Use Discontinued Medications Albuterol (Proventil Neb Soln) 2.5 mg NEB ONETIME PRN PRN Reason: Wheezing Atropine Sulfate (Atropine 0.1 Mg/Ml) 0.5 mg IVPUSH ASDIRECTED PRN PRN Reason: Hypo-perfusion Atropine Sulfate (Atropine 0.1 Mg/Ml) 1 mg IVPUSH ASDIRECTED PRN PRN Reason: Hypo-Perfusion Bupivacaine HCl (Marcaine 0.5%) Confirm Administered Dose 30 ml .ROUTE .STK-MED ONE Stop: 09/27/19 09:55 Dextrose/Water (Dextrose 50% In Water) 50 ml IVPUSH ASDIRECTED PRN PRN Reason: Hypoglycemia Epinephrine HCl (Epinephrine 1:10,000) 1 mg IVPUSH ASDIRECTED PRN PRN Reason: ACLS Guidelines Fentanyl (Sublimaze) Confirm Administered Dose 250 mcg .ROUTE .STK-MED ONE Stop: 09/27/19 09:55 Fentanyl (Sublimaze) 50 mcg IVPUSH Q5M PRN PRN Reason: Pain Glycopyrrolate (Robinul) Confirm Administered Dose 0.4 mg .ROUTE .STK-MED ONE Stop: 09/27/19 11:33 Hydromorphone HCl (Dilaudid) 0.5 mg IVPUSH ONETIME ONE Stop: 09/27/19 00:50 Last Admin: 09/27/19 00:58 Dose: 0.5 mg Hydromorphone HCl (Dilaudid) 0.5 mg IVPUSH Q1H PRN PRN Reason: Pain (severe 7-10) Last Admin: 09/27/19 09:33 Dose: 0.5 mg Sodium Chloride (Normal Saline) 1,000 mls @ 1,000 mls/hr IV .Bolus ONE Stop: 09/26/19 22:07 Last Admin: 09/26/19 21:35 Dose: 1,000 mls/hr Sodium Chloride (Normal Saline) 1,000 mls @ 999 mls/hr IV .Bolus ONE Stop: 09/27/19 00:39 Last Admin: 09/26/19 23:41 Dose: 999 mls/hr Piperacillin Sod/Tazobactam (Sod 3.375 gm/ Sodium Chloride) 50 mls @ 100 mls/ hr IV ONETIME ONE Stop: 09/27/19 00:32 Last Admin: 09/27/19 00:22 Dose: 100 mls/hr Lactated Ringer's (Ringers, Lactated) 1,000 mls @ 125 mls/hr IV ASDIRECTED [facility] Last Admin: 09/28/19 03:02 Dose: 125 mls/hr Piperacillin Sod/Tazobactam (Sod 3.375 gm/ Sodium Chloride) 50 mls @ 100 mls/ hr IV Q6H [facility] Last Admin: 09/28/19 04:59 Dose: 100 mls/hr Pantoprazole Sodium 40 mg/ (Sodium Chloride) 10 mls @ 300 mls/hr IV DAILY [facility] Last Admin: 09/27/19 09:33 Dose: 300 mls/hr Piperacillin Sod/Tazobactam (Sod 3.375 gm/ Sodium Chloride) 50 mls @ 100 mls/ hr IV ONETIME ONE Stop: 09/27/19 11:29 Last Admin: 09/27/19 13:33 Dose: Not Given Iopamidol (Isovue-370 (76%)) 100 ml IVPUSH ONETIME ONE Stop: 09/26/19 22:37 Last Admin: 09/26/19 22:36 Dose: 100 ml Lidocaine (Xylocaine-Mpf 2%) Confirm Administered Dose 5 ml .ROUTE .STK-MED ONE Stop: 09/27/19 09:55 Midazolam HCl (Versed 1 Mg/Ml) Confirm Administered Dose 2 mg .ROUTE .STK-MED ONE Stop: 09/27/19 09:55 Morphine Sulfate (Morphine) 4 mg IVPUSH ONETIME ONE Stop: 09/26/19 21:11 Last Admin: 09/26/19 21:37 Dose: 4 mg Morphine Sulfate (Morphine) 6 mg IVPUSH ONETIME ONE Stop: 09/26/19 23:29 Last Admin: 09/26/19 23:42 Dose: 6 mg Naloxone HCl (Narcan) 0.1 mg IVPUSH ASDIRECTED PRN PRN Reason: Respiratory Depression Ondansetron HCl (Zofran) 4 mg IVPUSH ONETIME ONE Stop: 09/26/19 21:11 Last Admin: 09/26/19 21:36 Dose: 4 mg Ondansetron HCl (Zofran) Confirm Administered Dose 4 mg .ROUTE .STK-MED ONE Stop: 09/27/19 11:34 Oxycodone/Acetaminophen (Percocet 325-5 Mg) 2 tab PO Q4H PRN PRN Reason: Pain (severe 7-10) Propofol (Diprivan 20 Ml) Confirm Administered Dose 200 mg .ROUTE .STK-MED ONE Stop: 09/27/19 09:55 Rocuronium [place] (Zemuron) Confirm Administered Dose 100 mg .ROUTE .STK-MED ONE Stop: 09/27/19 09:55 - Exam General: Reports: Alert, Oriented Lungs: Reports: Normal Respiratory Effort Cardiovascular: Reports: Regular Rate GI/Abdominal Exam: Soft, No Distention, Tender (mild RLQ tenderness) Back Exam: Reports: Normal Inspection, Full Range of Motion Extremities: Normal Inspection Skin: Reports: Warm, Dry, Intact Wound/Incisions: Reports: Healing Well, Dressing Dry and Intact
[2019-09-28] MEDS ORDERED: Polyethylene Glycol 3350 Powder 17 GM Packet PO SCH (09:00)
[2019-09-28] MEDS: Sertraline 50 MG Tab PO SCH (09:12)
== END 2019-09-28 10:50 | disposition home or self-care (01) ==
LOC: MW.ED 20:51 → MW.MS 23:40
PROVIDERS: ADMIT Surgery; ATTEND Surgery
DX: K35.80 Unspecified acute appendicitis (principal); I10 Essential (primary) hypertension; E11.9 Type 2 diabetes mellitus without complications; E78.5 Hyperlipidemia, unspecified; Z79.84 Long term (current) use of oral hypoglycemic drugs; Z79.899 Other long term (current) drug therapy; Z90.49 Acquired absence of other specified parts of digestive tract
CPT/HCPCS: 36415; 44970; 74177; 80053; 81003; 82962; 83036; 83605; 85025; 85027; 85610; 85652; 85730; 86140; 87635; 88304; 96365; 96375; 96376; 99285; A9270; C9113; J1170; J1815; J2001; J2250; J2270; J2405; J2543; J2704; J3010; J3490; J7030; J7050; J7120; Q9967; 00840; 99283; J0330; U0002

== ENCOUNTER 2023-08-19 10:01 | Emergency (ER) | payer BC ==
[2023-08-19] MEDS: Sodium Chloride 0.9% 1,000 ML IV ONE ×3 (10:40→13:42)
[2023-08-19] MEDS: Morphine 4 MG/ML Syringe IVPUSH ONE ×2 (10:41→14:42)
[2023-08-19] MEDS: Ondansetron 4 MG/2 ML SDV IVPUSH ONE (10:41)
[2023-08-19 10:54] LABS: HEMATOCRIT 31.7 % (42.0-52.0); HEMOGLOBIN 11.1 g/dL (14.0-18.0); MEAN CORPUSCULAR HEMOGLOBIN 31.6 pg (28.0-32.0); MEAN CORPUSCULAR VOLUME 90.3 fL (83.0-99.0); MEAN PLATELET VOLUME 10.1 fL (9.4-12.4); PLATELET COUNT,PLT 184 K/uL (150-400); RED BLOOD CELL COUNT 3.51 M/uL (4.52-5.90); WHITE BLOOD CELL COUNT,WBC 4.35 K/uL (3.9-11.3)
[2023-08-19 11:23] LABS: A/G RATIO 0.6 (0.9-1.6); ALBUMIN 2.6 g/dL (3.4-5.0); BILIRUBIN TOTAL 2.9 mg/dL (0.2-1.0); CALCIUM 8.4 mg/dL (8.5-10.1); CARBON DIOXIDE,CO2 22.9 mmol/L (21.0-32.0); CREATININE 0.8 mg/dL (0.8-1.3); EST CRCL DRUG DOSING (CG) 109.02 mL/min; MAGNESIUM 1.7 mg/dL (1.8-2.4); PROTEIN TOTAL,TP 6.9 g/dL (6.4-8.2)
[2023-08-19 11:26] LABS: BAND ABSOLUTE MAN 0.13; BAND PERCENT MAN 3 %; SEG NEUTROPHILS PERCENT MAN 69 % (41-71)
[2023-08-19 11:27] LABS: EOSINOPHILS ABSOLUTE MAN 0.09 K/uL (0.00-0.45); EOSINOPHILS PERCENT MAN 2 % (0-6); LYMPHOCYTES ABSOLUTE MAN 0.44 K/uL (1.00-4.80); LYMPHOCYTES PERCENT MAN 10 % (24-44); MONOCYTES PERCENT MAN 16 % (0-8)
[2023-08-19 11:30] LABS: POTASSIUM,K 3.1 mmol/L (3.5-5.1)
[2023-08-19 11:32] LABS: CORONAVIRUS COVID-19 NAA NEGATIVE (NEGATIVE); INFLUENZA A NAA NEGATIVE (NEGATIVE); INFLUENZA B NAA NEGATIVE (NEGATIVE); RESPIRATORY SYNCYTIAL VIR NAA NEGATIVE (NEGATIVE)
[2023-08-19] MEDS ORDERED: Magnesium Sulfate (4.06 MEQ/ML) 5 GM/10 ML SDV IV STA (11:41)
[2023-08-19] MEDS: Magnesium Sulfate/Water 2 GM in Premix Bag 1 BAG IV ONE (11:51)
[2023-08-19] MEDS: Potassium Chloride 20 MEQ Tab.ER PO ONE (13:12)
[2023-08-19 13:38] LABS: APPEARANCE,URINE CLEAR; COLOR,URINE BROWN; GLUCOSE,URINE NEGATIVE (NEGATIVE); KETONES,URINE TRACE mg/dL (NEGATIVE); LEUKOCYTE ESTERASE,URINE NEGATIVE (NEGATIVE); NITRITE,URINE NEGATIVE (NEGATIVE); OCCULT BLOOD,URINE NEGATIVE (NEGATIVE); PROTEIN,URINE 30 mg/dL (NEGATIVE)
[2023-08-19 13:50] LABS: BILIRUBIN,URINE MODERATE (NEGATIVE)
[2023-08-19 13:57] LABS: BACTERIA,URINE NOT SEEN (NEGATIVE); EPITHELIAL CELLS,URINE NOT SEEN (NONE-FEW); MUCUS,URINE LIGHT (NONE-MOD); RBC,URINE 0-1 (0-2/HPF); WBC,URINE 0-1 (0-5/HPF)
[2023-08-19] MEDS: Iopamidol 755 MG/ML 500 ML Multipack Bottle IVPUSH STA (14:23)
== END 2023-08-19 17:36 | disposition home or self-care (01) ==
LOC: MW.ED 10:01
DX: R10.11 Right upper quadrant pain (principal); R19.7 Diarrhea, unspecified; E66.9 Obesity, unspecified; E11.9 Type 2 diabetes mellitus without complications; Z68.26 Body mass index [BMI] 26.0-26.9, adult; Z75.8 Other problems related to medical facilities and other health care; Z88.8 Allergy status to other drugs, medicaments and biological substances; Z79.4 Long term (current) use of insulin; Z79.899 Other long term (current) drug therapy; Z90.49 Acquired absence of other specified parts of digestive tract
CPT/HCPCS: 0241U; 36415; 74177; 80053; 81001; 83735; 85025; 93005; 96361; 96365; 96375; 96376; 99284; A9270; J2270; J2405; J3475; J7030; Q9967; 93010

== ENCOUNTER 2023-08-30 09:57 | Emergency (ER) | payer BC ==
[2023-08-30 10:38] LABS: BASE EXCESS VENOUS 1.5 (-2.0-3.0); BICARBONATE,VENOUS 27 mEQ/mL (22-28); PCO2 VENOUS 46 mmHG (41-51); PH,VENOUS 7.38 (7.31-7.41)
[2023-08-30 10:39] LABS: BASOPHILS ABSOLUTE AUTO 0.02 K/uL (0.00-0.20); BASOPHILS PERCENT AUTO 0.2 % (0.0-1.0); EOSINOPHILS ABSOLUTE AUTO 0.06 K/uL (0.00-0.45); EOSINOPHILS PERCENT AUTO 0.6 % (0.0-6.0); HEMATOCRIT 34.5 % (42.0-52.0); HEMOGLOBIN 11.2 g/dL (14.0-18.0); IMMATURE GRAN ABSOLUTE AUTO 0.02 K/uL (0.00-0.05); IMMATURE GRAN PERCENT AUTO 0.2 % (0.0-0.4); LYMPHOCYTES ABSOLUTE AUTO 0.32 K/uL (1.00-4.80); LYMPHOCYTES PERCENT AUTO 3.5 % (24.0-44.0); MEAN CORPUSCULAR HEMOGLOBIN 30.7 pg (28.0-32.0); MEAN CORPUSCULAR HGB CONC 32.5 g/dL (32.0-36.0); MEAN CORPUSCULAR VOLUME 94.5 fL (83.0-99.0); MEAN PLATELET VOLUME 10.4 fL (9.4-12.4); MONOCYTES ABSOLUTE AUTO 0.54 K/uL (0.00-0.80); MONOCYTES PERCENT AUTO 5.8 % (0.0-8.0); NEUTROPHILS PERCENT AUTO 89.7 % (41.0-71.0); PLATELET COUNT,PLT 203 K/uL (150-400); PO2 VENOUS < 30 mmHG (80-100); RED BLOOD CELL COUNT 3.65 M/uL (4.52-5.90); WHITE BLOOD CELL COUNT,WBC 9.26 K/uL (3.9-11.3)
[2023-08-30] MEDS: Alum Hydro/Mag Hydro/Simeth XS 15 ML, Lidocaine 2% 5 ML PO STA (10:48)
[2023-08-30] MEDS: Sodium Chloride 0.9% 1,000 ML IV STA ×3 (10:48→14:49)
[2023-08-30] MEDS: Sodium Chloride 0.9% 10 ML Syringe FLUSH PRN (10:49)
[2023-08-30] MEDS: Sodium Chloride 0.9% 2.5 ML Syringe FLUSH PRN (10:49)
[2023-08-30] MEDS: Ondansetron 4 MG/2 ML SDV IVPUSH STA (10:49)
[2023-08-30] MEDS: Morphine 4 MG/ML Syringe IVPUSH STA ×3 (10:49→13:50)
[2023-08-30 10:58] LABS: INR 1.71 (0.86-1.11); PTT,PARTIAL THROMBOPLSTIN TIME 29.7 SEC (23.9-30.7)
[2023-08-30 11:06] LABS: A/G RATIO 0.5 (0.9-1.6); ALANINE AMINOTRANSFERASE,ALT 81 IU/L (14-63); ALBUMIN 2.7 g/dL (3.4-5.0); ALKALINE PHOSPHATASE 317 U/L (46-116); ASPARTATE AMNIOTRANSFERASE,AST 89 IU/L (15-37); BILIRUBIN TOTAL 4.8 mg/dL (0.2-1.0); BLOOD UREA NITROGEN,BUN 11 mg/dL (7.0-18.0); CALCIUM 8.7 mg/dL (8.5-10.1); CARBON DIOXIDE,CO2 25.8 mmol/L (21.0-32.0); CHLORIDE,CL 101 mmol/L (98-107); CREATININE 0.9 mg/dL (0.8-1.3); EST CRCL DRUG DOSING (CG) 96.91 mL/min; ESTIMATED GFR 107 mL/min (>60); GLUCOSE RANDOM 231 mg/dL (74-106); LIPASE 35 U/L (16-77); POTASSIUM,K 4.2 mmol/L (3.5-5.1); PROTEIN TOTAL,TP 7.8 g/dL (6.4-8.2); SODIUM,NA 139 mmol/L (136-148)
[2023-08-30 11:29] LABS: APPEARANCE,URINE CLEAR; COLOR,URINE ORANGE
[2023-08-30 11:30] LABS: BILIRUBIN,URINE MODERATE (NEGATIVE); GLUCOSE,URINE 100 mg/dL (NEGATIVE); KETONES,URINE NEGATIVE (NEGATIVE); LEUKOCYTE ESTERASE,URINE NEGATIVE (NEGATIVE); NITRITE,URINE NEGATIVE (NEGATIVE); OCCULT BLOOD,URINE NEGATIVE (NEGATIVE); PROTEIN,URINE TRACE mg/dL (NEGATIVE); UROBILINOGEN,URINE 0.2 EU/dL (<2.0)
[2023-08-30 11:31] LABS: BACTERIA,URINE NOT SEEN (NEGATIVE); EPITHELIAL CELLS,URINE RARE (NONE-FEW); RBC,URINE NONE SEEN (0-2/HPF); WBC,URINE NONE SEEN (0-5/HPF)
[2023-08-30] MEDS: Iopamidol 755 Mg/ML 100 ML Bottle IVPUSH STA (12:53)
[2023-08-30] MEDS: HYDROmorphone 0.5 MG/0.5 ML Syringe IVPUSH STA ×2 (14:21→14:50)
[2023-08-30] MEDS: Metoclopramide 10 MG/2 ML SDV IVPUSH STA (14:49)
[2023-08-30] MEDS: diphenhydrAMINE 50 MG/ML SDV IVPUSH STA (14:50)
== END 2023-08-30 16:16 | disposition home or self-care (01) ==
LOC: MW.ED 09:57
DX: C22.1 Intrahepatic bile duct carcinoma (principal); E80.6 Other disorders of bilirubin metabolism; I10 Essential (primary) hypertension; E11.9 Type 2 diabetes mellitus without complications; E03.9 Hypothyroidism, unspecified; Z79.4 Long term (current) use of insulin; Z79.899 Other long term (current) drug therapy; Z88.8 Allergy status to other drugs, medicaments and biological substances; Z75.8 Other problems related to medical facilities and other health care; Z68.26 Body mass index [BMI] 26.0-26.9, adult
CPT/HCPCS: 36415; 74177; 74177-26; 80053; 81001; 82803; 83690; 84484; 85025; 85610; 85730; 93010; 96361; 96374; 96375; 96376; 99284; 99284-25; A9270-GY; J1170; J1200; J2270; J2405; J2765; J3490; J7030; Q9967